=== PATIENT | male | born 1975 | race Caucasian/White ===

== ENCOUNTER 2022-02-14 22:44 | Emergency (ER) | payer OTHER, SELFPAY ==
[2022-02-14 22:46] VITALS: BP 125/75; PULSE 153; RESP 22; TEMP 36.5; O2SAT 93; BMI 45.6
--- NOTE | 2022-02-14 23:01 | ECG_ITS ---
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 Measurements Intervals [place] Rate: 149 P: NM: QRS: 49 QRSD: 154 T: 27 QT: 288 QTc: 454 Interpretive Statements ATRIAL FLUTTER WITH RAPID VENTRICULAR RESPONSE INTRAVENTRICULAR CONDUCTION DELAY [130+ ms QRS DURATION] No previous ECG available for comparison Electronically Signed On 02-15-2022 10:52:02 CDT by Danica Maldonado M.D. [id number]
--- NOTE | 2022-02-14 23:11 | XRR_ITS ---
PROCEDURE INFORMATION: Exam: XR Chest Exam date and time: 02/14/2022 11:33 PM Age: 46 years old Clinical indication: Pain; Chest pressure; Additional info: Cp TECHNIQUE: Imaging protocol: Radiologic exam of the chest. Views: 1 view. COMPARISON: No relevant prior studies available. FINDINGS: Lungs: Mild bibasilar opacities may represent superimposition of shadows, inflammation, or infection. Suspected mild increased pulmonary vascularity. No large consolidation. Pleural spaces: Layering small pleural effusions cannot be excluded. No large pleural effusion is identified. . No pneumothorax. Heart/Mediastinum: The cardiomediastinal silhouette appears mildly prominent on portable view. Bones/joints: There are degenerative changes of the spine and shoulder joints. XR/XR chest 1V portable [id number] IMPRESSION: 1. Nonspecific mild bibasilar opacities as outlined. 2. No pneumothorax.
--- NOTE | 2022-02-14 23:11 | ECG_ITS ---
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 Measurements Intervals [place] Rate: 77 P: 27 NH: 157 QRS: 39 QRSD: 105 T: 48 QT: 393 QTc: 447 Interpretive Statements SINUS RHYTHM WITH OCCASIONAL SUPRAVENTRICULAR PREMATURE COMPLEXES INCOMPLETE RIGHT BUNDLE BRANCH BLOCK Compared to ECG 02/14/2022 23:04:31 Incomplete right bundle-branch block now present Atrial flutter no longer present Intraventricular conduction delay no longer present Electronically Signed On 02-15-2022 10:51:24 CDT by Danica Maldonado M.D. [id number]
[2022-02-14] MEDS: dilTIAZem 5 mg/mL SDV 5 mL 15 MG IVP (23:20)
[2022-02-14] MEDS: sodium chloride 0.9% 1,000 ML 999 ML IV (23:20)
[2022-02-14 23:29] LABS: Basophils % 0.4 %; Eosinophils # 0.1 10^3/uL (0.0-0.8); Eosinophils % 0.9 %; Hemoglobin 15.8 g/dL (11.7-16.6); Lymphocytes # 1.8 10^3/uL (0.8-4.8); Lymphocytes % 23.4 %; Mean Corpuscular HGB Conc 33.6 g/dL (30.0-36.0); Mean Corpuscular Hemoglobin 31.3 pg (28.0-34.0); Mean Corpuscular Volume 93.1 fl (80-94); Mean Platelet Volume 11.3 fL (7.4-10.4); Monocytes # 0.7 10^3/uL (0.2-0.9); Monocytes % 9.1 %; Neutrophils # 4.89 10^3/uL (1.8-7.7); Neutrophils % 64.7 %; Nucleated Red Blood Cells % 0 %; Platelet Count 217 10^3/cmm (130-400); Red Blood Count 5.05 10^6/uL (4.1-5.3); Red Cell Distribution Width 13.1 % (12.1-15.1); White Blood Count 7.6 10^3/uL (4.0-10.0)
[2022-02-14 23:36] LABS: INR 1.08 (0.8-1.2)
[2022-02-14 23:37] LABS: Partial Thromboplastin Time 28.7 SECONDS (23.9-36.7)
[2022-02-14 23:39] LABS: D Dimer 0.48 ug/mIFEU (0-0.59)
[2022-02-14 23:42] LABS: Troponin(5th) Baseline 13 ng/L (0-15)
[2022-02-14 23:53] LABS: Alanine Aminotransferase 89 U/L (0-41); Albumin Level 4.5 g/dL (3.5-5.2); Alkaline Phosphatase 77 U/L (40-130); Anion Gap 20.2 (5-19); Aspartate Amino Transferase 56 U/L (0-40); Blood Urea Nitrogen 25 mg/dL (6-20); Calcium 10.7 mg/dL (8.5-10.5); Carbon Dioxide 21 mmol/L (22-29); Chloride 100 mmol/L (98-107); Globulin 3.6 g/dL (1.3-4.6); Glomerular Filtration Rate 58.9 mL/min (90-130); Glucose 127 mg/dL (65-115); Magnesium 1.9 mg/dL (1.7-2.3); NT Pro B Type Natriuretic Pept 32 pg/mL (0-125); Osmolality Calculated 290 mOsm/kg (285-295); Potassium 4.2 mmol/L (3.5-5.1); Sodium 137 mmol/L (136-145); Thyroid Stimulating Hormone 3.77 uIU/mL (0.27-4.20); Total Bilirubin 0.4 mg/dL (0.15-1.2); Total Protein 8.1 g/dL (6.6-8.7)
[2022-02-15 01:25] LABS: Troponin 5 2HR 13.59 ng/L (0-15)
[2022-02-15 01:33] LABS: Troponin 5 2HR Delta 0.59 ABS# (0-10)
--- NOTE | 2022-02-15 02:38 | ED_ITS ---
HPI - Chest Pain General: Chief Complaint: Chest Pain Stated Complaint: high hr and cp Time Seen by Provider: 02/14/22 23:11 Source: patient and family History of Present Illness: 46-year-old male presenting with palpitations and rapid heart rate. He has had the symptoms before, but they seem to resolve on their own. Tonight he did not. He denies chest pain. He states he is mildly short of breath. He notes that right now he feels fine . His rate is 150. MD complaint: other Pertinent past history: other Onset (ago): hour(s) Timing of current episode: other Prior episodes: Yes Onset: during rest Pain location: other Pain radiation: none Quality: tightness Relieving factors: nothing Exacerbating factors: nothing Associated symptoms: Reports diaphoresis, dyspnea and palpitations; Deny abdominal pain, fever(s), leg edema, nausea, syncope or vomiting Treatment prior to arrival: none Review of Systems Const: Reports: diaphoresis; Denies: fever(s) Eyes: Denies: change in vision Card: Reports: palpitations; Denies: syncope Resp: Reports: dyspnea GI: Denies: abdominal pain, nausea or vomiting Skin/Breast: Denies: rash Neuro: Denies: headache(s), weakness in extremities, dizziness or confusion PFS ED PFSH: Social History Smoking and tobacco status: former smoker Physical Exam Const: COMMON NORMALS: no acute distress GENERAL APPEARANCE: cooperative; not ill appearing and not frail appearing HENMT: COMMON NORMALS: normocephalic, atraumatic and Normal external nose present HEAD & SCALP: normocephalic and atraumatic FACE & SINUS: normal facial exam and face symmetric NOSE: Normal external nose present Eye: COMMON NORMALS: Equal, round and reactive pupils present and EOMs intact bilaterally PUPIL: Yes Equal, round and reactive pupils present Neck/C-Spine: GENERAL: Yes trachea midline Chest: CHEST: Yes Symmetrical chest wall rise Resp: COMMON NORMALS: normal respiratory effort, No retractions, No use of accessory muscles and clear to auscultation bilaterally AUSCULTATION: clear to auscultation bilaterally Cardio: COMMON NORMALS: regular rate RATE: regular rate and tachycardic RHYTHM: abnormal rhythm irregularly irregular GI: COMMON NORMALS: Normal to inspection, nondistended, normoactive bowel sounds present Extremity: COMMON NORMALS: no pedal edema Neuro: YASSINE COMA SCALE: document GCS findings Yassine coma scale eye opening: Spontaneous [place] coma scale verbal response: Orientated Yassine coma scale motor response: Obey commands Yassine coma scale total score: 15 SENSORY EXAM: Yes extremities (intact) Psych: COMMON NORMALS: speech normal SPEECH: Yes normal speech Skin: COMMON NORMALS: no rashes or lesions noted GENERAL SKIN EXAM: no rashes or lesions noted Course 2 Vital Signs: Vital signs: Vital Signs Temperature 97.7 F 02/14/22 22:46 Pulse Rate 153 H 02/14/22 22:46 Respiratory Rate 22 H 02/14/22 22:46 Blood Pressure 125/75 02/14/22 22:46 Pulse Oximetry 93 02/14/22 22:46 Oxygen Delivery Me thod 02/14/22 22:46 MDM - Chest Pain Medical Decision Making Patient presented with atrial fibrillation with RVR. This resolved after 1 dose of diltiazem IV. EKG following shows normal sinus rhythm. CBC is normal. Creatinine is 1.3. Troponin remained normal at 2 hours. D-dimer is negative. Chest x-ray by my read is clear. TSH is normal. Patient was offered admission, but declined. He wishes to go home. He will be placed on metoprolol for rate control, aspirin for reduction of stroke risk, and asked to follow-up with cardiology. Case management will make the patient appointment. He has a PCP and will follow up with her this coming week Lab Data : 02/14/22 23:10 02/14/22 23:10 Radiology Impressions Chest X-Ray 02/14/22 23:11 IMPRESSION: 1. Nonspecific mild bibasilar opacities as outlined. 2. No pneumothorax. Laboratory Results WBC 7.6 10^3/uL (4.0-10.0) 02/14/22 23:10 RBC 5.05 10^6/uL (4.1-5.3) 02/14/22 23:10 Hgb 15.8 g/dL (11.7-16.6) 02/14/22 23:10 Hct 47.0 % (42.0-52.0) 02/14/22 23:10 MCV 93.1 fl (80-94) 02/14/22 23:10 MCH 31.3 pg (28.0-34.0) 02/14/22 23:10 MCHC 33.6 g/dL (30.0-36.0) 02/14/22 23:10 RDW 13.1 % (12.1-15.1) 02/14/22 23:10 Plt Count 217 10^3/cmm (130-400) 02/14/22 23:10 MPV 11.3 fL (7.4-10.4) H 02/14/22 23:10 Neut % (Auto) 64.7 % 02/14/22 23:10 Lymph % (Auto) 23.4 % 02/14/22 23:10 Heard % (Auto) 9.1 % 02/14/22 23:10 Eos % (Auto) 0.9 % 02/14/22 23:10 Baso % (Auto) 0.4 % 02/14/22 23:10 Neut # (Auto) 4.89 10^3/uL (1.8-7.7) 02/14/22 23:10 Lymph # (Auto) 1.8 10^3/uL (0.8-4.8) 02/14/22 23:10 Heard # (Auto) 0.7 10^3/uL (0.2-0.9) 02/14/22 23:10 Eos # (Auto) 0.1 10^3/uL (0.0-0.8) 02/14/22 23:10 Baso # (Auto) 0.0 10^3/uL (0.0-0.1) 02/14/22 23:10 Nucleated RBC % (auto) 0 % 02/14/22 23:10 Nucleated RBCs # 0.0 /100WBC 02/14/22 23:10 PT 14.30 SECONDS (12.1-14.9) 02/14/22 23:10 INR 1.08 (0.8-1.2) 02/14/22 23:10 APTT 28.7 SECONDS (23.9-36.7) 02/14/22 23:10 D-Dimer 0.48 ug/mIFEU (0-0.59) 02/14/22 23:10 Sodium 137 mmol/L (136-145) 02/14/22 23:10 Potassium 4.2 mmol/L (3.5-5.1) 02/14/22 23:10 Chloride 100 mmol/L (98-107) 02/14/22 23:10 Carbon Dioxide 21 mmol/L (22-29) L 02/14/22 23:10 Anion Gap 20.2 (5-19) H 02/14/22 23:10 BUN 25 mg/dL (6-20) H 02/14/22 23:10 Creatinine 1.3 mg/dL (0.7-1.2) H 02/14/22 23:10 GFR Calculation 58.9 mL/min (90-130) L 02/14/22 23:10 Glucose 127 mg/dL (65-115) H 02/14/22 23:10 Calculated Osmolality 290 mOsm/kg (285-295) 02/14/22 23:10 Calcium 10.7 mg/dL (8.5-10.5) H 02/14/22 23:10 Magnesium 1.9 mg/dL (1.7-2.3) 02/14/22 23:10 Total Bilirubin 0.4 mg/dL (0.15-1.2) 02/14/22 23:10 AST 56 U/L (0-40) H 02/14/22 23:10 ALT 89 U/L (0-41) H 02/14/22 23:10 Alkaline Phosphatase 77 U/L (40-130) 02/14/22 23:10 Troponin T Baseline 13 ng/L (0-15) 02/14/22 23:10 Troponin T 120 Minute 13.59 ng/L (0-15) 02/15/22 00:54 Delta Troponin T 0.59 ABS# (0-10) 02/15/22 00:54 NT-Pro-B Natriuret Pep 32 pg/mL (0-125) 02/14/22 23:10 Total Protein 8.1 g/dL (6.6-8.7) 02/14/22 23:10 Albumin 4.5 g/dL (3.5-5.2) 02/14/22 23:10 Globulin 3.6 g/dL (1.3-4.6) 02/14/22 23:10 TSH 3.77 uIU/mL (0.27-4.20) 02/14/22 23:10 Discharge Plan Discharge Patient Disposition: Home Clinical Impression: Atrial fibrillation with tachycardic ventricular rate Prescriptions: New metoprolol tartrate 25 mg tablet 25 mg PO BID Qty: 30 0RF aspirin 325 mg capsule 325 mg PO DAILY Qty: 30 0RF No Action escitalopram oxalate [Lexapro] 10 mg tablet 10 mg PO DAILY ibuprofen [IBU] 800 mg tablet 800 mg PO Q8H alprazolam [Xanax] 0.5 mg tablet 0.5 mg PO DAILY azithromycin 250 mg tablet See Rx Instructions PO .COMPLEX Qty: 6 0RF Rx Instructions: take 500 mg today (day 1), then 250 mg for 4 days (days 2-5) PO methylprednisolone [Medrol (Te)] 4 mg tablets,dose pack See Rx Instructions PO PER PKG DIR Qty: 21 0RF Rx Instructions: PO PER PKG DIR albuterol sulfate [Ventolin HFA] 90 mcg/actuation HFA aerosol inhaler 2 puff inhalation Q6H PRN (Reason: shortness of breath or wheezing) Qty: 8.5 0RF Discharge Orders: Discharge ED (Routine); Ordered 02/15/22 Ordered By: Devon Bosch Referrals: Dawn Barrios APN [Primary Care Provider] - 1-3 days Patient Instructions: Opioid Safety, Pain Management Activity Restrictions/Additional Instructions: Medication as directed. See your doctor next week. Case management has been asked to make cardiology appointment for you. They will contact you at the be ginning of the week. Return to the ER for any episodes of chest pain, palpitations or fast heart ra te, dizziness, syncope or passing out, any other concerning symptoms. Coding Level of Care Code ED Pump Installation And Servicer for Tess Sanchez
== END 2022-02-15 01:54 | disposition home or self-care (01) ==
PROVIDERS: Emergency Provider Emergency Medicine; PCP Nurse Practitioner Family
DX: I48.20 Chronic atrial fibrillation, unspecified (principal); Z87.891 Personal history of nicotine dependence
CPT/HCPCS: 71045; 80053; 83735; 83880; 84443; 84484; 85025; 85378; 85610; 85730; 93005; 96374; 99285; J3490; J7030

== ENCOUNTER 2022-02-25 15:30 | Emergency (ER) | payer OTHER, SELFPAY ==
[2022-02-25 15:39] VITALS: BP 157/65; PULSE 72; RESP 16; TEMP 36.4; O2SAT 95
--- NOTE | 2022-02-25 16:02 | USCV_ITS ---
LevyGrupo Age: 46 Gender: M : 1975 Exam Date: 02/25/2022 16:24 Ordering Phys: Osbaldo Franco Technologist: ROBINSON Exam Location: [facility] [place] Indication: RUE PAIN AND TENDER LUMPS HISTORY: Upper extremity swelling. Upper extremity pain. PROCEDURES: Venous duplex imaging was performed in only the right upper extremity. The following venous structures were evaluated: internal jugular vein, subclavian vein, axillary vein, and brachial veins. In addition, the basilic vein, cephalic vein, radial vein, and ulnar vein. Serial compression, augmentation maneuvers, and spectral Doppler flow evaluation were performed. FINDINGS: The veins of the right upper extremity are readily compressible with normal venous flow dynamics including spontaneous flow, respiratory phasic variation and augmentation. No evidence of deep vein thrombosis or superficial thrombophlebitis in the right upper extremity. In AOI of lumps no obvious abnormalites seen CONCLUSIONS No evidence of thrombus of the right upper extremity veins. Tyron Ley MD (Electronically Signed) Final Date: 25 February 2022 16:45 S
--- NOTE | 2022-02-25 16:03 | ED_ITS ---
HPI - Animal Bite General: Chief Complaint: Animal Bite Stated Complaint: spiderbite Time Seen by Provider: 02/25/22 15:53 History of Present Illness: Patient is a 46-year-old male comes to the ED with red tender nodules on right forearm. Patient had a brown recluse spider bite of his right wrist little over 2 weeks ago. He was put on a course of Bactrim and then started on a course of cephalexin after that. Over the past couple days he started developing these sore red tender nodules on his forearm. Denies any other injury or trauma to cause symptoms. Denies any history of blood clots. He is not on a blood thinner currently. Denies any chest pain or shortness of breath. Associated symptoms: Deny chills, fever(s) or headache(s) Review of Systems Const: Denies: fever(s), chills or fatigue Eyes: Denies: change in vision or eye discomfort ENMT: Denies: throat pain, odynophagia, nasal discharge or nasal congestion Card: Denies: chest pain, palpitations, edema, swelling of feet/ankles, dyspnea on exertion or orthopnea Resp: Denies: dyspnea, productive cough or non-productive cough GI: Denies: abdominal pain, nausea, vomiting, diarrhea, constipation or hematochezia : Denies: flank pain, difficulty urinating, dysuria or hematuria Musc: Reports: other (Sore tender nodules on right forearm); Denies: neck pain, back pain or extremity swelling Skin/Breast: Denies: rash or new lesions Neuro: Denies: headache(s), numbness in extremities or weakness in extremities COUNT INCLUDES THE [facility] ED PFSH: Medical History No pertinent family history Surgical History No pertinent past surgical history Social History Smoking and tobacco status: former smoker Physical Exam Const: COMMON NORMALS: no acute distress, patient oriented x3 and alert GENERAL APPEARANCE: cooperative and comfortable HENMT: COMMON NORMALS: normocephalic HEAD & SCALP: normocephalic MOUTH: Normal oral and palatal mucosa present THROAT: posterior oropharynx normal and uvula midline Neck/C-Spine: COMMON NORMALS: supple GENERAL: Yes normal visual inspection Resp: COMMON NORMALS: normal respiratory effort, No retractions, No use of accessory muscles and clear to auscultation bilaterally AUSCULTATION: clear to auscultation bilaterally Cardio: COMMON NORMALS: regular rate, regular rhythm, S1 normal heart sound present, S2 normal heart sound present, No gallops present (Cardio), No clicks present (Cardio), No murmurs present (Cardio) and Peripheral pulses 2+ throughout RATE: regular rate RHYTHM: regular rhythm HEART SOUNDS: S1 normal heart sound present and S2 normal heart sound present PERIPHERAL PULSES: Peripheral pulses 2+ throughout GI: COMMON NORMALS: Normal to inspection, nondistended, normoactive bowel sounds present, Soft to palpation, non-tender and no masses PALPATION: Yes Soft to palpation : COMMON NORMALS: Yes no CVA tenderness BLADDER/KIDNEY EXAM: Yes no CVA tenderness Back/Pelvis: COMMON NORMALS: no CVA tenderness Extremity: COMMON NORMALS: full ROM and capillary refill normal NARRATIVE EXTREMITY EXAM: Right arm?wrist- healing spider bite wound present that is approximately 2 cm in diameter. No purulent drainage noted. No signs of cellulitis seen. Right proximal forearm?3 small, warm, erythemic tender firm nodules. They are nonfluctuant and indurated. Findings suggestive of possible cellulitis. Neuro: COMMON NORMALS: patient oriented x3 SENSORIUM/ORIENTATION: Yes alert GAIT: Yes Normal gait present Skin: GENERAL SKIN EXAM: dry skin Course Vital Signs: Vital signs: Vital Signs Temperature 97.5 F L 02/25/22 15:39 Pulse Rate 72 02/25/22 15:39 Respiratory Rate 16 02/25/22 15:39 Blood Pressure 157/65 02/25/22 15:39 Pulse Oximetry 95 02/25/22 15:39 Oxygen Delivery Me thod 02/25/22 15:39 MDM - Animal Bite Medical Decision Making Patient is a 46-year-old male comes to the ED with some red tender nodules on right forearm. Patient had a brown recluse spider bite little over 2 weeks ago and he has been on a course of antibiotics to treat that. Vitals are stable patient appears nontoxic in no acute distress or pain. Right proximal forearm?3 small, warm, erythemic tender firm nodules. They are nonfluctuant and indurated. Findings suggestive of possible cellulitis. Patient's spider bite wound on right wrist is healing well and does not appear infected. Ultrasound venous duplex of right upper extremity shows no DVTs or blood clots seen. Patient was diagnosed with cellulitis and given a shot of Rocephin here in the ED and sent home with a prescription for doxycycline. Told to follow-up with his PCP within the next week for reevaluation. Return to ED precautions given. Patient understood and agreed with plan. Discharge Plan Discharge Patient Disposition: Home Clinical Impression: Cellulitis Qualifiers: Site of cellulitis: extremity Site of cellulitis of extremity: upper extremity Laterality: right Qualified Code(s): L03.113 - Cellulitis of right upper limb Condition: Stable Prescriptions: New methylprednisolone 4 mg tablets,dose pack See Rx Instructions .ROUTE .COMPLEX Qty: 21 0RF Rx Instructions: orally per package directions doxycycline hyclate 100 mg capsule 100 mg PO BID 10 Days Qty: 20 0RF No Action escitalopram oxalate [Lexapro] 10 mg tablet 10 mg PO DAILY ibuprofen [IBU] 800 mg tablet 800 mg PO Q8H alprazolam [Xanax] 0.5 mg tablet 0.5 mg PO DAILY azithromycin 250 mg tablet See Rx Instructions PO .COMPLEX Qty: 6 0RF Rx Instructions: take 500 mg today (day 1), then 250 mg for 4 days (days 2-5) PO methylprednisolone [Medrol (Te)] 4 mg tablets,dose pack See Rx Instructions PO PER PKG DIR Qty: 21 0RF Rx Instructions: PO PER PKG DIR albuterol sulfate [Ventolin HFA] 90 mcg/actuation HFA aerosol inhaler 2 puff inhalation Q6H PRN (Reason: shortness of breath or wheezing) Qty: 8.5 0RF metoprolol tartrate 25 mg tablet 25 mg PO BID Qty: 30 0RF aspirin 325 mg capsule 325 mg PO DAILY Qty: 30 0RF Discharge Orders: Discharge ED (Routine); Ordered 02/25/22 Ordered By: Osbaldo Franco Referrals: Dawn Barrios APN [Primary Care Provider] - Discharge Diet: Regular Discharge Activity: Increase activity as tolerated Activity Restrictions/Additional Instructions: Follow-up with medical provider as directed in the next 5 to 7 days for reevaluation. Take medications as prescribed. Return to the ER or your medical provider if condition worsens. Please read and understand discharge instructions. Thank you for choosing [facility] for your healthcare needs today. Please realize this is an emergency room and that we are providing you with a medical screening exam and this may not be complete and all inclusive of all the testing and or work up that you may need to determine your ailment or severity of your illness. It is very important that you follow up as instructed or that you return to the Emergency Department should you have concerns or if your condition changes or worsens in any way. Coding Level of Care Code ED Adult Manager for Tess Fwd Exam Comprehensive
[2022-02-25] MEDS: ketorolac 60 mg/2 mL INJ IM (16:09)
[2022-02-25] MEDS: cefTRIAXone 1,000 MG in lidocaine 1% 2.1 ML 1 MG IM (17:06)
== END 2022-02-25 17:09 | disposition home or self-care (01) ==
PROVIDERS: Emergency Provider Physician Assistant; PCP Nurse Practitioner Family
DX: L03.113 Cellulitis of right upper limb (principal); Z79.82 Long term (current) use of aspirin; Z87.891 Personal history of nicotine dependence
CPT/HCPCS: 93971; 96372; 99285; J0696; J1885

== ENCOUNTER 2022-03-26 01:59 | Inpatient (IN) | payer OTHER, SELFPAY ==
--- NOTE | 2022-03-26 02:04 | ECG_ITS ---
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 Measurements Intervals [place] Rate: 133 P: 0 ME: 0 QRS: 41 QRSD: 103 T: 45 QT: 299 QTc: 445 Interpretive Statements ATRIAL FIBRILLATION WITH RAPID VENTRICULAR RESPONSE ABNORMAL RHYTHM ECG Compared to ECG 02/14/2022 23:55:59 Sinus rhythm no longer present Incomplete right bundle-branch block no longer present Electronically Signed On 03-26-2022 18:07:36 SKINNER PELTS by Beck Mcdaniel M.D. [id number]
[2022-03-26 02:06] VITALS: BMI 46.1
--- NOTE | 2022-03-26 02:14 | XRR_ITS ---
PROCEDURE INFORMATION: Exam: XR Chest Exam date and time: 03/26/2022 2:18 AM Age: 46 years old Clinical indication: Shortness of breath; Patient HX: C/O tachycardia with SOB. Recently diagnosed with afib. ; Additional info: Cp TECHNIQUE: Imaging protocol: Radiologic exam of the chest. Views: 1 view. COMPARISON: CR (CHEST, ) 02/14/2022 11:33 PM FINDINGS: Lungs: No CHF/pulmonary edema. Poor inspiration somewhat limits evaluation, especially of the lung bases. Suspect mild lateral left lower lung opacities. These findings could represent atelectasis or pneumonia. Please correlate clinically. Visible lungs otherwise appear essentially clear. Pleural spaces: No visible pneumothorax. No definite pleural fluid. Heart/Mediastinum: Heart size appears upper range of normal. Bones/joints: No significant acute finding. XR/XR chest 1V portable [id number] IMPRESSION: 1. Suspect mild lateral left lower lung opacities, see above discussion. 2. Other findings discussed above.
--- NOTE | 2022-03-26 02:24 | W.ED.ARRPALP ---
HPI - Arrhythmia/Palpitations General: Chief Complaint: Arrhythmia/Palpitations Stated Complaint: fast hr Time Seen by Provider: 03/26/22 02:04 Source: patient Mode of arrival: ambulatory Limitations: no limitations History of Present Illness: 46-year-old male who states that he has been having palpitations along with chest pain and shortness of breath since midnight he states he was seen here 2 weeks ago for atrial flutter placed on Metroprolol and states heart rates been good and states that tonight at midnight he did check his heart rate into the 150s in the 140s here in A. fib with RVR denies any worsening proving factors denies any fevers. Associated symptoms: Deny nausea or vomiting Review of Systems Const: Denies: fever(s), chills, body aches or change in appetite Eyes: Denies: blurry vision or eye discomfort ENMT: Denies: throat pain or dental pain Card: Reports: chest pain, palpitations and irregular heart rhythm Resp: Reports: dyspnea GI: Denies: abdominal pain, nausea, vomiting or diarrhea : Denies: dysuria Musc: Denies: neck pain or back pain Skin/Breast: Denies: rash Neuro: Denies: headache(s) Psych: Denies: depression Lyle/Lymph: Denies: easy bruising All/Imm: Denies: urticaria PFSH ED PFSH: Medical History No pertinent family history Surgical History No pertinent past surgical history Social History Smoking and tobacco status: former smoker Physical Exam Const: COMMON NORMALS: no acute distress, patient oriented x3 and healthy appearing HENMT: COMMON NORMALS: normocephalic and atraumatic HEAD & SCALP: normocephalic and atraumatic Eye: COMMON NORMALS: Equal, round and reactive pupils present and EOMs intact bilaterally PUPIL: Yes Equal, round and reactive pupils present Neck/C-Spine: COMMON NORMALS: full ROM and supple Chest: COMMONS NORMALS: normal inspection of the chest and normal palpation of entire chest wall Resp: COMMON NORMALS: normal respiratory effort, No retractions, No use of accessory muscles and clear to auscultation bilaterally AUSCULTATION: clear to auscultation bilaterally Cardio: COMMON NORMALS: No murmurs present (Cardio) RATE: tachycardic RHYTHM: abnormal rhythm irregularly irregular GI: COMMON NORMALS: Normal to inspection, nondistended, normoactive bowel sounds present, Soft to palpation, non-tender and no masses PALPATION: Yes Soft to palpation Extremity: COMMON NORMALS: normal to inspection and full ROM Neuro: COMMON NORMALS: patient oriented x3, moves all extremities and no focal motor deficits Psych: COMMON NORMALS: mental status grossly normal, Normal thought process present and cooperative THOUGHT PROCESS: Normal thought process present Skin: COMMON NORMALS: no rashes or lesions noted and no wounds GENERAL SKIN EXAM: no rashes or lesions noted MDM - Arrhythmia/Palpitations Medical Decision Making Patient presents here new onset A. fib with A. fib with RVR patient was given Cardizem bolus heart rate improved to the 110s but had to be started on a Cardizem drip due to continued tachycardia he has no signs of PE as D-dimer is negative spoke to the hospitalist and will admit at this time. Lab Data 03/26/22 02:12 03/26/22 02:12 Laboratory Results WBC 5.6 10^3/uL (4.0-10.0) 03/26/22 02:12 RBC 4.65 10^6/uL (4.1-5.3) 03/26/22 02:12 Hgb 14.6 g/dL (11.7-16.6) 03/26/22 02:12 Hct 42.4 % (42.0-52.0) 03/26/22 02:12 MCV 91.2 fl (80-94) 03/26/22 02:12 MCH 31.4 pg (28.0-34.0) 03/26/22 02:12 MCHC 34.4 g/dL (30.0-36.0) 03/26/22 02:12 RDW 12.9 % (12.1-15.1) 03/26/22 02:12 Plt Count 213 10^3/cmm (130-400) 03/26/22 02:12 MPV 10.8 fL (7.4-10.4) H 03/26/22 02:12 Neut % (Auto) 48.9 % 03/26/22 02:12 Lymph % (Auto) 40.6 % 03/26/22 02:12 Hartley % (Auto) 6.8 % 03/26/22 02:12 Eos % (Auto) 2.5 % 03/26/22 02:12 Baso % (Auto) 0.5 % 03/26/22 02:12 Neut # (Auto) 2.71 10^3/uL (1.8-7.7) 03/26/22 02:12 Lymph # (Auto) 2.3 10^3/uL (0.8-4.8) 03/26/22 02:12 Hartley # (Auto) 0.4 10^3/uL (0.2-0.9) 03/26/22 02:12 Eos # (Auto) 0.1 10^3/uL (0.0-0.8) 03/26/22 02:12 Baso # (Auto) 0.0 10^3/uL (0.0-0.1) 03/26/22 02:12 Nucleated RBC % (auto) 0 % 03/26/22 02:12 Nucleated RBCs # 0.0 /100WBC 03/26/22 02:12 D-Dimer <= 0.27 ug/mIFEU (0-0.59) 03/26/22 02:12 Sodium 140 mmol/L (136-145) 03/26/22 02:12 Potassium 3.8 mmol/L (3.5-5.1) 03/26/22 02:12 Chloride 101 mmol/L (98-107) 03/26/22 02:12 Carbon Dioxide 26 mmol/L (22-29) 03/26/22 02:12 Anion Gap 16.8 (5-19) 03/26/22 02:12 BUN 15 mg/dL (6-20) 03/26/22 02:12 Creatinine 1.0 mg/dL (0.7-1.2) 03/26/22 02:12 GFR Calculation 79.8 mL/min (90-130) L 03/26/22 02:12 Glucose 97 mg/dL (65-115) 03/26/22 02:12 Calculated Osmolality 291 mOsm/kg (285-295) 03/26/22 02:12 Calcium 9.8 mg/dL (8.5-10.5) 03/26/22 02:12 Total Bilirubin 0.3 mg/dL (0.15-1.2) 03/26/22 02:12 AST 32 U/L (0-40) 03/26/22 02:12 ALT 43 U/L (0-41) H 03/26/22 02:12 Alkaline Phosphatase 68 U/L (40-130) 03/26/22 02:12 Troponin T Baseline 12 ng/L (0-15) 03/26/22 02:12 Total Protein 7.4 g/dL (6.6-8.7) 03/26/22 02:12 Albumin 4.4 g/dL (3.5-5.2) 03/26/22 02:12 Globulin 3.0 g/dL (1.3-4.6) 03/26/22 02:12 EKG Data EKG 1: I personally reviewed and interpreted this EKG as follows: EKG interpretation date: 03/26/22 EKG interpretation time: 02:04 Interpretation: afiv hr [address] or t wave abnormalities qrs 103 qtc 377 Critical Care Time Critical Care Time: Critical Care Time: Yes Total Critical Care Time: 40 Attestation: The high probability of a clinically significant, sudden or life threatening deterioration of the patient's cv system(s) required my full and direct attention, intervention and personal management. The critical care time is as shown. This time is in addition to time spent performing any reported procedures but includes the following: [x] Data and vital sign review and interpretation [x] Patient assessment, examination and intervention [x] Documentation [x] Medication orders and management Discharge Plan Discharge Patient Disposition: Admitted As Inpatient Clinical Impression: Atrial fibrillation with rapid ventricular response Condition: Stable Prescriptions: No Action escitalopram oxalate [Lexapro] 10 mg tablet 10 mg PO DAILY ibuprofen [IBU] 800 mg tablet 800 mg PO Q8H alprazolam [Xanax] 0.5 mg tablet 0.5 mg PO DAILY azithromycin 250 mg tablet See Rx Instructions PO .COMPLEX Qty: 6 0RF Rx Instructions: take 500 mg today (day 1), then 250 mg for 4 days (days 2-5) PO methylprednisolone [Medrol (Te)] 4 mg tablets,dose pack See Rx Instructions PO PER PKG DIR Qty: 21 0RF Rx Instructions: PO PER PKG DIR albuterol sulfate [Ventolin HFA] 90 mcg/actuation HFA aerosol inhaler 2 puff inhalation Q6H PRN (Reason: shortness of breath or wheezing) Qty: 8.5 0RF metoprolol tartrate 25 mg tablet 25 mg PO BID Qty: 30 0RF aspirin 325 mg capsule 325 mg PO DAILY Qty: 30 0RF methylprednisolone 4 mg tablets,dose pack See Rx Instructions .ROUTE .COMPLEX Qty: 21 0RF Rx Instructions: orally per package directions Referrals: Dawn Barrios APN [Primary Care Provider] - Coding Level of Care Code ED [employer] Mechanic for Chg Fwd Exam Comprehensive
[2022-03-26] MEDS: sodium chloride 0.9% 1,000 ML 999 ML IV ×2 (02:32→04:00)
[2022-03-26] MEDS: dilTIAZem 5 mg/mL SDV 5 mL 10 MG IVP (02:32)
[2022-03-26 02:33] LABS: Basophils % 0.5 %; Eosinophils # 0.1 10^3/uL (0.0-0.8); Eosinophils % 2.5 %; Hematocrit 42.4 % (42.0-52.0); Hemoglobin 14.6 g/dL (11.7-16.6); Lymphocytes # 2.3 10^3/uL (0.8-4.8); Lymphocytes % 40.6 %; Mean Corpuscular HGB Conc 34.4 g/dL (30.0-36.0); Mean Corpuscular Hemoglobin 31.4 pg (28.0-34.0); Mean Corpuscular Volume 91.2 fl (80-94); Mean Platelet Volume 10.8 fL (7.4-10.4); Monocytes # 0.4 10^3/uL (0.2-0.9); Monocytes % 6.8 %; Neutrophils # 2.71 10^3/uL (1.8-7.7); Neutrophils % 48.9 %; Nucleated Red Blood Cells % 0 %; Platelet Count 213 10^3/cmm (130-400); Red Blood Count 4.65 10^6/uL (4.1-5.3); Red Cell Distribution Width 12.9 % (12.1-15.1); White Blood Count 5.6 10^3/uL (4.0-10.0)
[2022-03-26 02:51] LABS: Alanine Aminotransferase 43 U/L (0-41); Albumin Level 4.4 g/dL (3.5-5.2); Alkaline Phosphatase 68 U/L (40-130); Anion Gap 16.8 (5-19); Aspartate Amino Transferase 32 U/L (0-40); Blood Urea Nitrogen 15 mg/dL (6-20); Calcium 9.8 mg/dL (8.5-10.5); Carbon Dioxide 26 mmol/L (22-29); Chloride 101 mmol/L (98-107); D Dimer <= 0.27 ug/mIFEU (0-0.59); Glomerular Filtration Rate 79.8 mL/min (90-130); Glucose 97 mg/dL (65-115); Osmolality Calculated 291 mOsm/kg (285-295); Potassium 3.8 mmol/L (3.5-5.1); Sodium 140 mmol/L (136-145); Total Bilirubin 0.3 mg/dL (0.15-1.2); Total Protein 7.4 g/dL (6.6-8.7); Troponin(5th) Baseline 12 ng/L (0-15)
[2022-03-26] MEDS: dilTIAZem 100 MG in sodium chloride 0.9% (add-van) 100 ML 10 MG IV (02:58)
--- NOTE | 2022-03-26 04:14 | ECG_ITS ---
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 Measurements Intervals [place] Rate: 98 P: 0 DE: 0 QRS: 54 QRSD: 97 T: 63 QT: 331 QTc: 423 Interpretive Statements ATRIAL FIBRILLATION WITH ABERRANT CONDUCTION OR VENTRICULAR PREMATURE COMPLEXES ABNORMAL RHYTHM ECG Compared to ECG 03/26/2022 02:04:50 Ventricular premature complex(es) now present Aberrant conduction of supraventricular beat(s) now present Electronically Signed On 03-26-2022 18:24:19 LEAD ATHLETE by Beck Mcdaniel M.D. [id number]
--- NOTE | 2022-03-26 04:44 | P.HP_ITS ---
Providers/Chief Complaint Primary Care Provider: Dawn Barrios APN Chief Complaint: fast hr History of Present Illness Grupo Levy is a 46 year old male who does not have significant past medical history other than hypertension presented with chief complaint of chest discomfort. He is describing chest discomfort as butterfly feeling, he is not describing it as chest pain. No recent shortness of breath, fever, nausea, vomiting. He suffered from a spider bite and lymphangitis 6 weeks ago has been on antibiotics. No previous diagnosis of A. fib CHF or OK. Patient snores a lot, has been gaining weight, drinks more than 2 beers a day, he does vap. He is endorsing to morning headaches, lack of energy, feeling tired. No previous history of sleep apnea In the ER he has been diagnosed with new onset A. fib RVR multiple doses of Cardizem bolus did not help to control his heart rate hence he was put on Cardizem drip Review of Systems Const: Denies: fever(s) Eyes: Denies: change in vision ENMT: Denies: throat pain Card: Denies: chest pain Resp: Denies: dyspnea GI: Denies: abdominal pain : Denies: flank pain Musc: Denies: neck pain Skin/Breast: Reports: rash Neuro: Denies: headache(s) Psych: Denies: anxiety Endo: Denies: polyuria Lyle/Lymph: Denies: easy bruising All/Imm: Denies: urticaria Medications/Allergies Home Medications Medication Instructions Recorded Confirmed Last Taken Type albuterol sulfate 90 mcg/actuation 2 puff inhalation Q6H PRN 12/05/20 12/05/20 Unknown Rx aerosol inhaler (Ventolin HFA) shortness of breath or wheezing #8.5 grams alprazolam 0.5 mg tablet (Xanax) 0.5 mg PO DAILY 12/05/20 12/05/20 Unknown History azithromycin 250 mg tablet See Rx Instructions PO .COMPLEX #6 12/05/20 12/05/20 Unknown Rx tabs escitalopram oxalate 10 mg tablet 10 mg PO DAILY 12/05/20 12/05/20 Unknown History (Lexapro) ibuprofen 800 mg tablet (IBU) 800 mg PO Q8H 12/05/20 12/05/20 Unknown History methylprednisolone 4 mg tablets in See Rx Instructions PO PER PKG DIR 12/05/20 12/05/20 Unknown Rx a dose pack (Medrol (Te)) #21 ea aspirin 325 mg capsule 325 mg PO DAILY #30 caps 02/15/22 Unknown Rx metoprolol tartrate 25 mg tablet 25 mg PO BID #30 tabs 02/15/22 Unknown Rx methylprednisolone 4 mg tablets in See Rx Instructions PO .COMPLEX 02/25/22 Unknown Rx a dose pack #21 ea Allergies Allergy/AdvReac Type Severity Reaction Status Date / Time No Known Allergies Allergy Verified 02/25/22 15:44 PFSH Acute PFSH: Medical History No pertinent family history Surgical History No pertinent past surgical history Social History (Updated 03/26/22 @ 05:22 by iMng Broussard MD) Smoking and tobacco status: current every day smoker e-cigarettes Alcohol intake: current Alcohol intake frequency: 3 or more drinks per day Alc ohol type: beer Vitals/I&O/Wt Weight last 48 hrs Weight 158.757 kg Physical Exam Narrative: Morbidly obese male Appears more than stated age Clinically does not look fluid overloaded Currently hemodynamic stable Variable S1-S2 A. fib RVR Hemodynamically stable Nonfocal neuro exam Right wrist spider bite seems to be healing Right arm lymphangitis improving EOMI, PERRLA Abdomen distended nontender, soft Appropriate mood and affect Data 03/26/22 02:12 03/26/22 02:12 A&P Assessment and plan (1) HTN (hypertension): (2) Atrial fibrillation with rapid ventricular response: Plan New onset A. fib RVR Currently on Cardizem drip Check magnesium level Check echo Concern is related to undiagnosed sleep apnea patient is showing all the signs of untreated sleep apnea We will do overnight pulse ox study He will need outpatient sleep study He carries history of hypertension, no history of diabetes, OK or vascular disease, [id number] is 1 for now I will put him on aspirin Check A1c level, lipid profile Check alcohol and drug screen If his rhythm does not convert to sinus, he might need cardiology consult and antiarrhythmic medications For now we will continue Cardizem drip along with p.o. Cardizem regimen Patient vapes, more than 2 beers every day Attestations Medical Necessity Statement*: More than 2 midnights anticipated Time Spent in Patient Care: 40 Coding Level of Care Code Acute Adjunct Psychology Faculty Member for Chg Fwd Diagnoses HTN (hypertension) I10 Atrial fibrillation with rapid ventricular response I48.91
[2022-03-26 05:35] VITALS: BP 104/75; PULSE 111; RESP 18; TEMP 36.6; O2SAT 94
--- NOTE | 2022-03-26 05:36 | USCV_ITS ---
Grupo Levy Age: 46 Gender: M : 1975 Exam Date: 03/26/2022 10:25 Ordering Phys: Ming Broussard MD Technologist: ROBINSON Exam Location: [facility] [place] Indication: A FIB BP: 132 / 75 HR: 62 Rhythm: Sinus Technical Quality: Poor MEASUREMENTS (Male / Female) Normal Values 2D ECHO LVOT Diameter 2.0 cm LV Ejection Fraction MOD 2C 63.5 % LV Ejection Fraction 2C AL 63.6 % LA Diameter 4.1 cm LA Width 3.6 cm LA Height 4.9 cm RA Width 3.4 cm RA Height 4.3 cm Aorta at Sinotubular Diameter 2.4 cm IVC Diameter 2.2 cm M-MODE Aortic Annulus Diameter 3.3 cm LA Ao Ratio MM 1.2 MV E Point Septal Separation 1.0 cm DOPPLER AV Peak Velocity 186.7 cm/s LVOT Peak Velocity 129.0 cm/s AV Area Cont Eq vti 2.4 cm squared AV Area Cont Eq pk 2.2 cm squared MV Peak Velocity 109.0 cm/s MV Area PHT 3.9 cm squared Mitral E to A Ratio 1.2 MV E' Velocity 96.0 cm/s TR Peak Velocity 149.8 cm/s TR Peak Gradient 9.0 mmHg TR Mean Velocity 116.9 cm/s TR Mean Gradient 6.0 mmHg TR Velocity Time Integral 36.0 cm TV Peak E Velocity 51.0 cm/s Right Atrial Pressure 3.0 mmHg Pulmonary Artery Systolic Pressu 12.0 mmHg PV Peak Velocity 92.0 cm/s RV Acceleration Time 0.1 s RV Ejection Time 0.4 s RV AcT/ET 0.4 FINDINGS Left Ventricle Normal left ventricular size, systolic function and wall thickness, with no regional wall motion abnormalities. Normal left ventricular wall thickness. Normal diastolic filling pattern. Echo contrast was used to adequately visualize the ventricle and the endocardium. Left ventricular ejection fraction is estimated at 60 %. Right Ventricle The right ventricle is normal in size and function. Normal right ventricular systolic pressure. Right Atrium The right atrium is normal in size. Left Atrium The left atrium is normal in size. Mitral Valve Structurally normal mitral valve without significant stenosis or prolapse. There is no mitral regurgitation. Aortic Valve Structurally normal aortic valve without significant sclerosis or stenosis. There is no aortic regurgitation. Tricuspid Valve Structurally normal tricuspid valve without significant stenosis or regurgitation. Pulmonary artery systolic pressure is normal. Pulmonic Valve Pulmonic valve not well visualized. Pericardium Normal pericardium without effusion. Aorta Normal ascending aorta dimension. IVC The inferior vena cava appears normal. CONCLUSIONS Normal transthoracic echocardiogram. There are no prior echocardiogram studies to compare. Dr. Jarod Rush MD (Electronically Signed) Final Date: 26 March 2022 15:18 S
[2022-03-26 06:00] VITALS: PULSE 112
[2022-03-26 06:09] LABS: Estmated Average Glucose 117; Hemoglobin A1C 5.7 % (4.0-6.0)
[2022-03-26 06:14] LABS: Troponin 5 2HR 12.71 ng/L (0-15)
[2022-03-26 06:20] LABS: NT Pro B Type Natriuretic Pept 37 pg/mL (0-125); Thyroid Stimulating Hormone 3.54 uIU/mL (0.27-4.20)
[2022-03-26 06:36] LABS: Troponin 5 2HR Delta 0.71 ABS# (0-10)
[2022-03-26] MEDS: dilTIAZem 30 mg Tablet PO ×2 (06:43→12:32)
[2022-03-26] MEDS: acetaminophen 500 mg Tablet PO (06:43)
[2022-03-26] MEDS: enoxaparin 40 mg/0.4 mL Syringe SUBCUT (06:44)
[2022-03-26 07:12] VITALS: BP 132/71; PULSE 97; RESP 12; TEMP 36.7; O2SAT 93
[2022-03-26 07:18] VITALS: PULSE 93; RESP 16; O2SAT 94
--- NOTE | 2022-03-26 08:14 | ECG_ITS ---
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 Measurements Intervals [place] Rate: 63 P: 4 VA: 169 QRS: 37 QRSD: 104 T: 39 QT: 414 QTc: 427 Interpretive Statements SINUS RHYTHM Compared to ECG 03/26/2022 06:18:02 Atrial fibrillation no longer present Ventricular premature complex(es) no longer present Aberrant conduction of supraventricular beat(s) no longer present Electronically Signed On 03-26-2022 18:24:28 FOUNDER by Beck Mcdaniel M.D. [id number]
[2022-03-26 08:34] LABS: Amphetamines Screen Urine Negative (Negative); Barbiturates Screen Urine Negative (Negative); Benzodiazepines Screen Urine Positive (Negative); Cocaine Screen Urine Negative (Negative); Opiate Screen Urine Negative (Negative); PCP Screen Urine Negative (Negative); THC Screen Urine Negative (Negative)
--- NOTE | 2022-03-26 08:37 | PC.CHAP ---
Pastoral Care Encounter/Spiritual Assessment Type of Contact [] Declined spring layer visit [] Patient/Family/Request visit [] Outpatient visit [] Follow-up visit [] Physician referral [] Code/Alert [x] Routine visit [] Staff referral [] Actively dying [] Patient sleeping [] Family support [] [] Out of room [] Palliative care [] [] Receiving care in room [] Pre-surgical visit [] Trauma [] Long length of stay [] ICU visit [] Other: Relational/Emotional Strength [x] Patient feels connected with others/family/visitors/staff [] Distress [] Loneliness/isolation [] Abandonment Spirituality of Patient [x] Person of Tiffany [] Attends Alevism of their Tiffany [x] Believes in Prayer [] Reads Bible or Religion materials [] There are Spiritual issues to be addressed Observatory Director Interventions [x] Prayer [x] Active listening [x] Non-anxious presence [x] Spiritual/emotional support [] Crisis/trauma care [] Spiritual counseling [] Bereavement support [] Provided bereavement packet [] Provided Bible/devotional materials [] Provided toy/stuffed animal, coloring book to patient or family member [] Provided Communion [] Anointing/[place] [] Salvation [x] Completed spiritual assessment [] Other: Impact on Illness or Injury [] Angry [] Fearful [] Anxious [] Often cries [] Exhaustion [] Unable to work [] Unable to attend alevism [] Unable to walk/stand [] Unable to read [] Unable to drive [] Unable to eat/drink [] Unable to sleep [] Unable to be with family [] Patient intubated [] Other: Summary Time spent with patient 10m
[2022-03-26] MEDS: aspirin 81 mg EC Tablet PO (09:22)
[2022-03-26] MEDS: FUROsemide 10 mg/mL SDV 4mL 40 MG IVP (09:51)
[2022-03-26] MEDS: metoprolol tartrate 25 mg Tablet PO (09:51)
[2022-03-26 10:02] LABS: Troponin 5 6HR 16.11 ng/L (0-15)
[2022-03-26 10:03] LABS: Magnesium 1.6 mg/dL (1.7-2.3); Troponin 5 6HR Delta 4.11 ng/L (0-12)
[2022-03-26 10:48] VITALS: BP 155/82; PULSE 63; RESP 18
[2022-03-26] MEDS: perflutren protein-a microsphr 0.22 mg/mL SDV 3 mL IV (10:59)
--- NOTE | 2022-03-26 11:55 | PM.DCS ---
Discharge Providers Date of Admission: 03/26/22 05:36 Date of Discharge: March 26, 2022 Attending Provider at Admission: Ming Broussard MD Attending Provider at Discharge: Derek Millan MD Primary Care Provider: Dawn Barrios APN Diagnoses at Discharge Discharge Diagnosis (1) HTN (hypertension): Status: Acute (2) Atrial fibrillation with rapid ventricular response: Status: Acute Reason for Visit Reason for Visit: fast hr Hospital Course Hospital Course This is a 46-year-old male with a past medical history of hypertension, atrial fibrillation, who presents to [facility] due to chest palpitations and shortness of breath Patient has a diagnosis of atrial fibrillation, he actually presented to the emergency room in February was diagnosed with atrial fibrillation, however he did not want to be admitted, was discharged on Metroprolol and aspirin. However he ran out of metoprolol. He presents [facility] for A. fib with RVR, placed on Cardizem drip monitored in the 6 cardiac stepdown unit. He converted to normal sinus rhythm, transition to his home Metroprolol 25 twice daily, added Cardizem 120 every 24 hours. He was monitored overall he clinically improved, discharged home with close follow-up with cardiology next week. He is [id number] 2 score was 1, stroke risk was 0.6, discharged on aspirin. Physical Exam Const: COMMON NORMALS: no acute distress and patient oriented x3 Resp: COMMON NORMALS: normal respiratory effort, No retractions, No use of accessory muscles and clear to auscultation bilaterally AUSCULTATION: clear to auscultation bilaterally Cardio: COMMON NORMALS: regular rate, regular rhythm, S1 normal heart sound present and S2 normal heart sound present RATE: regular rate RHYTHM: regular rhythm HEART SOUNDS: S1 normal heart sound present and S2 normal heart sound present GI: COMMON NORMALS: Normal to inspection, nondistended, normoactive bowel sounds present and non-tender Extremity: COMMON NORMALS: no pedal edema Neuro: COMMON NORMALS: patient oriented x3 Psych: COMMON NORMALS: mental status grossly normal Discharge Data Studies Completed and Pending Completed Studies During Hospitalization Category Date Time Status XR chest 1V portable [id number] Stat Exams 03/26/22 02:14 Completed Pending at discharge Category Date Time Status Basic Metabolic Panel AM LABS Lab 03/27/22 04:00 Ordered Complete Blood Count w/Auto AM LABS Lab 03/27/22 04:00 Ordered Magnesium AM LABS Lab 03/27/22 04:00 Ordered CV. echo wo/w contrast [id number] Routine Ultrasound 03/26/22 05:36 Taken Radiology Impressions Chest X-Ray 03/26/22 02:14 IMPRESSION: 1. Suspect mild lateral left lower lung opacities, see above discussion. 2. Other findings discussed above. Laboratory Results WBC 5.6 10^3/uL (4.0-10.0) 03/26/22 02:12 RBC 4.65 10^6/uL (4.1-5.3) 03/26/22 02:12 Hgb 14.6 g/dL (11.7-16.6) 03/26/22 02:12 Hct 42.4 % (42.0-52.0) 03/26/22 02:12 MCV 91.2 fl (80-94) 03/26/22 02:12 MCH 31.4 pg (28.0-34.0) 03/26/22 02:12 MCHC 34.4 g/dL (30.0-36.0) 03/26/22 02:12 RDW 12.9 % (12.1-15.1) 03/26/22 02:12 Plt Count 213 10^3/cmm (130-400) 03/26/22 02:12 MPV 10.8 fL (7.4-10.4) H 03/26/22 02:12 Neut % (Auto) 48.9 % 03/26/22 02:12 Lymph % (Auto) 40.6 % 03/26/22 02:12 [place] % (Auto) 6.8 % 03/26/22 02:12 Eos % (Auto) 2.5 % 03/26/22 02:12 Baso % (Auto) 0.5 % 03/26/22 02:12 Neut # (Auto) 2.71 10^3/uL (1.8-7.7) 03/26/22 02:12 Lymph # (Auto) 2.3 10^3/uL (0.8-4.8) 03/26/22 02:12 [place] # (Auto) 0.4 10^3/uL (0.2-0.9) 03/26/22 02:12 Eos # (Auto) 0.1 10^3/uL (0.0-0.8) 03/26/22 02:12 Baso # (Auto) 0.0 10^3/uL (0.0-0.1) 03/26/22 02:12 Nucleated RBC % (auto) 0 % 03/26/22 02:12 Nucleated RBCs # 0.0 /100WBC 03/26/22 02:12 D-Dimer <= 0.27 ug/mIFEU (0-0.59) 03/26/22 02:12 Sodium 140 mmol/L (136-145) 03/26/22 02:12 Potassium 3.8 mmol/L (3.5-5.1) 03/26/22 02:12 Chloride 101 mmol/L (98-107) 03/26/22 02:12 Carbon Dioxide 26 mmol/L (22-29) 03/26/22 02:12 Anion Gap 16.8 (5-19) 03/26/22 02:12 BUN 15 mg/dL (6-20) 03/26/22 02:12 Creatinine 1.0 mg/dL (0.7-1.2) 03/26/22 02:12 GFR Calculation 79.8 mL/min (90-130) L 03/26/22 02:12 Glucose 97 mg/dL (65-115) 03/26/22 02:12 Estimat Average Glucose 117 03/26/22 05:40 Hemoglobin A1c 5.7 % (4.0-6.0) 03/26/22 05:40 Calculated Osmolality 291 mOsm/kg (285-295) 03/26/22 02:12 Calcium 9.8 mg/dL (8.5-10.5) 03/26/22 02:12 Magnesium 1.6 mg/dL (1.7-2.3) L 03/26/22 09:30 Total Bilirubin 0.3 mg/dL (0.15-1.2) 03/26/22 02:12 AST 32 U/L (0-40) 03/26/22 02:12 ALT 43 U/L (0-41) H 03/26/22 02:12 Alkaline Phosphatase 68 U/L (40-130) 03/26/22 02:12 Troponin T Baseline 12 ng/L (0-15) 03/26/22 02:12 Troponin T 120 Minute 12.71 ng/L (0-15) 03/26/22 05:40 Delta Troponin T 0.71 ABS# (0-10) 03/26/22 05:40 Troponin T Hi Sens 6Hr 16.11 ng/L (0-15) H 03/26/22 09:30 Troponin T Hi Sens 6Hr Delta 4.11 ng/L (0-12) 03/26/22 09:30 NT-Pro-B Natriuret Pep 37 pg/mL (0-125) 03/26/22 05:40 Total Protein 7.4 g/dL (6.6-8.7) 03/26/22 02:12 Albumin 4.4 g/dL (3.5-5.2) 03/26/22 02:12 Globulin 3.0 g/dL (1.3-4.6) 03/26/22 02:12 TSH 3.54 uIU/mL (0.27-4.20) 03/26/22 05:40 Urine Opiates Screen Negative ng/mL (Negative) 03/26/22 08:10 Ur Barbiturates Screen Negative ng/mL (Negative) 03/26/22 08:10 Ur Phencyclidine Scrn Negative ng/mL (Negative) 03/26/22 08:10 Ur Amphetamines Screen Negative ng/mL (Negative) 03/26/22 08:10 U Benzodiazepines Scrn Positive ng/mL (Negative) H 03/26/22 08:10 Urine Cocaine Screen Negative ng/mL (Negative) 03/26/22 08:10 U Marijuana (THC) Screen Negative ng/mL (Negative) 03/26/22 08:10 Vitals Last Vital Signs Temp 98.0 F 03/26/22 07:12 Pulse 63 03/26/22 10:48 Resp 18 03/26/22 10:48 BP 155/82 03/26/22 10:48 Pulse Ox 94 03/26/22 07:18 O2 Del Method 03/26/22 07:18 Discharge Plan Discharge Patient Disposition: Home Condition: Stable Prescriptions: New Cardizem CD 120 mg capsule,extended release 24hr 120 mg PO DAILY 30 Days Qty: 30 0RF Continued escitalopram oxalate [Lexapro] 10 mg tablet 20 mg PO DAILY aspirin 325 mg capsule 325 mg PO DAILY Qty: 30 0RF gabapentin 300 mg capsule 300 mg PO QID tramadol 50 mg tablet 50 mg PO Q4H PRN (Reason: Pain) cyclobenzaprine 10 mg tablet 10 mg PO BID PRN (Reason: Spasms) triamterene-hydrochlorothiazid 37.5-25 mg tablet 1 tab PO DAILY alprazolam 1 mg tablet 1 mg PO TID metoprolol tartrate 25 mg tablet 25 mg PO BID 30 Days Qty: 60 0RF Discontinued ibuprofen [IBU] 800 mg tablet 800 mg PO DAILY doxycycline hyclate 100 mg capsule 100 mg PO BID Discharge Orders: Discharge Order (Routine); Ordered 03/26/22 Ordered By: Derek Millan Referrals: Danica Maldonado MD [Physician] - 4-7 days Sunny Reagan MD [Physician] - 03/31/22 2:45 pm Discharge Diet: Cardiac Discharge Activity: Resume usual activity Patient Instructions: Opioid Safety Activity Restrictions/Additional Instructions: - If you have recurrent shortness of breath or chest pain or palpitations go to the emergency room -Please follow-up with primary care -Please follow-up with cardiology Discharge Attestations Time Spent in Discharge Care*: less than 30 min Quality Metrics Clinical Quality Measures [ No reported AMI, CVA or VTE this stay] Coding Level of Care Code Acute Chg FW DC note Diagnoses HTN (hypertension) I10 Atrial fibrillation with rapid ventricular response I48.91
[2022-03-26 14:44] VITALS: BP 155/82; PULSE 63; RESP 18
--- NOTE | 2022-03-26 16:16 | PC.NURSE ---
discharge instructions given and explained.pt verb understanding of instructions.discharged via ambulatory to exit.spouse to drive pt home.
== END 2022-03-26 16:17 | disposition home or self-care (01) | DRG 309 ==
LOC: ER 03:33 → CSU 05:48
PROVIDERS: Admitting Provider Internal Medicine; Emergency Provider Emergency Medicine; PCP Nurse Practitioner Family; Visit Provider Family Medicine
DX: I48.91 Unspecified atrial fibrillation (principal); Z68.42 Body mass index [BMI] 45.0-49.9, adult; I10 Essential (primary) hypertension; Z79.891 Long term (current) use of opiate analgesic; F17.290 Nicotine dependence, other tobacco product, uncomplicated; E66.01 Morbid (severe) obesity due to excess calories; G47.30 Sleep apnea, unspecified
CPT/HCPCS: 36415; 71045; 80053; 80306; 83036; 83735; 83880; 84443; 84484; 85025; 85378; 93005; 96372; 96374; 99291; C8929; J1650; J1940; J3490; J7030; Q9956

== ENCOUNTER 2022-07-10 17:30 | Emergency (ER) | payer OTHER, SELFPAY ==
[2022-07-10 17:37] VITALS: BP 123/74; PULSE 87; RESP 16; TEMP 36.5; O2SAT 96
--- NOTE | 2022-07-10 18:00 | XRR_ITS ---
PROCEDURE INFORMATION: Exam: XR Chest Exam date and time: 07/10/2022 6:09 PM Age: 47 years old Clinical indication: Shortness of breath; Additional info: SOB TECHNIQUE: Imaging protocol: Radiologic exam of the chest. Views: 1 view. COMPARISON: CR (CHEST, ) 03/26/2022 2:18 AM FINDINGS: Lungs: Visualized portions of the lungs are clear. Pleural spaces: Unremarkable. No pleural effusion. No pneumothorax. Heart/Mediastinum: Heart is within normal limits of size. Bones/joints: There are degenerative changes in the thoracic spine. XR/XR chest 1V portable [id number] IMPRESSION: No acute infiltrate.
--- NOTE | 2022-07-10 18:08 | CTR_ITS ---
PROCEDURE INFORMATION: Exam: CT Abdomen And Pelvis Without Contrast Exam date and time: 07/10/2022 6:26 PM Age: 47 years old Clinical indication: Abdominal pain; Patient HX: Patient fell three days ago, generalized muscle pain with low back pain; Additional info: Abd pain TECHNIQUE: Imaging protocol: Computed tomography of the abdomen and pelvis without contrast. Sagittal and coronal reformatted images were created and reviewed. Radiation optimization: All CT scans at this facility use at least one of these dose optimization techniques: automated exposure control; mA and/or kV adjustment per patient size (includes targeted exams where dose is matched to clinical indication); or iterative reconstruction. REPORTING DATA: Count of CT and Cardiac NM exams in prior 12 months: This patient has received [address] and 0 known cardiac nuclear medicine studies in the 12 months prior to the current study. COMPARISON: CR (CHEST, ) 07/10/2022 6:09 PM RADIATION DOSE METRICS: Total DLP (mGy-cm): 1468.46 FINDINGS: Lungs: Calcified granuloma in the right lower lobe. Visualized lungs are clear. Pleural spaces: No pleural effusion. Heart: Stable mild enlargement of the heart. Liver: Nodular contour of the liver. The liver is mildly enlarged measuring 20.5 cm in length (series 6, image 71). Gallbladder and bile ducts: The gallbladder is unremarkable. No biliary ductal dilatation. Pancreas: The pancreas is unremarkable. No pancreatic ductal dilatation. Spleen: The spleen is unremarkable. Adrenal glands: The right and left adrenal glands are unremarkable. Kidneys and ureters: The right kidney is unremarkable. Simple cyst in the left kidney measuring 1.9 cm (series 3, image 49). The right and left ureters are unremarkable. Stomach and bowel: Scattered diverticula in the colon. No evidence for diverticulitis. Ingested contents in the stomach. No acute abnormality in the small bowel. No acute abnormality in the colon. Appendix: The appendix is visualized and is unremarkable. No findings to suggest acute appendicitis. Intraperitoneal space: No free intraperitoneal air. No ascites. No loculated fluid collections to suggest an abscess. Vasculature: Mild atherosclerotic changes in the visualized arteries. No evidence for aortic aneurysm or aortic dissection. No evidence for aortic aneurysm. Lymph nodes: No lymphadenopathy. Urinary bladder: The bladder is incompletely filled, which can limit evaluation. No focal abnormality in the bladder however. Reproductive: Nonspecific parenchymal calcifications in the prostate gland. Bones/joints: Moderate degenerative changes at both the right and left hips. Mild degenerative changes of the right and left sacroiliac joints. Multilevel degenerative changes of varying severity in the visualized spine. Mild spinal canal stenosis at L2-L3, L4-L5, and L5-S1. Moderate spinal canal stenosis at L3-L4. Multilevel foraminal stenosis of varying severity in the visualized spine. 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 There is an acute fracture through the ossified anterior longitudinal ligament extending posteriorly into the T11 vertebral body in a horizontal fashion, the fracture line then extends vertically to the superior endplate of T11 (series 6, images 44-53). No loss of height at T11. Age-indeterminate nondisplaced fracture of the superior tip of the left L2 superior facet (series 6, image 46 and series 5, images 62-63). Soft tissues: Small paravertebral soft tissue hematoma at T11. CT/CT abdomen pelvis wo con [id number] IMPRESSION: 1. 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 There is an acute fracture through the ossified anterior longitudinal ligament extending posteriorly into the T11 vertebral body in a horizontal fashion, the fracture line then extends vertically to the superior endplate of T11. No loss of height at T11. Findings are concerning for possible unstable fracture. Small paravertebral soft tissue hematoma at T11. 2. Age-indeterminate nondisplaced fracture of the superior tip of the left L2 superior facet. 3. Scattered diverticula in the colon. No evidence for diverticulitis. 4. Mild hepatomegaly. Findings consistent with cirrhosis in the liver. 5. Incidental/nonacute findings are listed in the report. COMMENTS: Consistent with the [employer]'s Incidental Findings Committee white paper (J Am Augie Radiol 2018): Any incidental renal lesion less than 1 cm or classified as too small to characterize, or any incidental cystic renal lesion characterized as simple-appearing, is likely benign. No follow-up imaging is recommended for these lesions per consensus recommendations based on imaging criteria.
--- NOTE | 2022-07-10 18:08 | CTR_ITS ---
PROCEDURE INFORMATION: Exam: CT Head Without Contrast Exam date and time: 07/10/2022 6:23 PM Age: 47 years old Clinical indication: Injury or trauma; Fall; Concussion/head injury; Without loss of consciousness TECHNIQUE: Imaging protocol: Computed tomography of the head without contrast. Radiation optimization: All CT scans at this facility use at least one of these dose optimization techniques: automated exposure control; mA and/or kV adjustment per patient size (includes targeted exams where dose is matched to clinical indication); or iterative reconstruction. REPORTING DATA: Count of CT and Cardiac NM exams in prior 12 months: This patient has received [address] and 0 known cardiac nuclear medicine studies in the 12 months prior to the current study. COMPARISON: No relevant prior studies available. RADIATION DOSE METRICS: Total DLP (mGy-cm): 1268.48 FINDINGS: Brain: Normal. No hemorrhage. Unremarkable white matter. No mass effect. Cerebral ventricles: No ventriculomegaly. Paranasal sinuses: Visualized sinuses are unremarkable. No fluid levels. Mastoid air cells: Visualized mastoid air cells are well aerated. Bones/joints: Unremarkable. No acute fracture. Soft tissues: Unremarkable. CT/CT head wo con* [id number] IMPRESSION: No acute intracranial abnormality.
--- NOTE | 2022-07-10 18:09 | ED_ITS ---
HPI - Syncope General: Chief Complaint: Syncope Stated Complaint: Blood Pressure Low, Seeing stars Time Seen by Provider: 07/10/22 17:45 Source: patient Mode of arrival: ambulatory Limitations: no limitations History of Present Illness: 47-year-old male states that he had a syncopal event 2 weeks ago he states when this happened he did hit his head he has since then has been having some abdominal pain and headaches and has had 3-4 syncopal events since then. He states when he stands up he feels lightheaded see stars and then passes out he is on multiple medications currently he did recently started Cardizem for A-fib he is also on metoprolol. He denies any vomiting or diarrhea. He rates his headache a 3 out of 10. Associated symptoms: Reports abdominal pain and headache(s); Deny fever(s) Review of Systems Const: Denies: fever(s), chills, body aches or change in appetite Eyes: Denies: blurry vision or eye discomfort ENMT: Denies: throat pain or dental pain Card: Reports: syncope Resp: Denies: dyspnea GI: Reports: abdominal pain : Denies: dysuria Musc: Denies: neck pain or back pain Skin/Breast: Denies: rash Neuro: Reports: headache(s) Psych: Denies: depression Lyle/Lymph: Denies: easy bruising All/Imm: Denies: urticaria PFSH ED PFSH: Medical History Afib Hypertension Neuropathy No pertinent family history Periodic heart flutter Surgical History History of hand surgery left hand No pertinent past surgical history Family History (Updated 03/31/22 @ 15:16 by Marisol Marr LPN) Grandfather Heart disease Grandmother Dementia Other Hypertension Denies family history of Diabetes CAD (coronary artery disease) Clotting disorder Hyperlipidemia Psychiatric illness Chronic kidney disease (CKD) Anesthesia complication Bleeding disorder Lung disease Cancer Stroke Social History Smoking and tobacco status: current every day smoker e-cigarettes E-Cigarette Details: e-cigarette E-cig/vape details: Hx 15PY tobacco use, quit 8yrs ago Alcohol intake: current Alcohol type: hard liquor Lives independently: Yes Household members: family Marital status: Number of children: 2 Current occupational status: employed 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 Current gender identity: Male Agree to transfusion: Yes Physical Exam Const: COMMON NORMALS: no acute distress, patient oriented x3 and healthy appearing HENMT: COMMON NORMALS: normocephalic and atraumatic HEAD & SCALP: normocephalic and atraumatic Eye: COMMON NORMALS: Equal, round and reactive pupils present and EOMs intact bilaterally PUPIL: Yes Equal, round and reactive pupils present Neck/C-Spine: COMMON NORMALS: full ROM and supple Chest: COMMONS NORMALS: normal inspection of the chest and normal palpation of entire chest wall Resp: COMMON NORMALS: normal respiratory effort, No retractions, No use of accessory muscles and clear to auscultation bilaterally AUSCULTATION: clear to auscultation bilaterally Cardio: COMMON NORMALS: regular rate, regular rhythm and No murmurs present (Cardio) RATE: regular rate RHYTHM: regular rhythm GI: COMMON NORMALS: Normal to inspection, nondistended, normoactive bowel sounds present, Soft to palpation, non-tender and no masses PALPATION: Yes Soft to palpation Extremity: COMMON NORMALS: normal to inspection and full ROM Neuro: COMMON NORMALS: patient oriented x3, moves all extremities and no focal motor deficits Psych: COMMON NORMALS: mental status grossly normal, Normal thought process present and cooperative THOUGHT PROCESS: Normal thought process present Skin: COMMON NORMALS: no rashes or lesions noted and no wounds GENERAL SKIN EXAM: no rashes or lesions noted Course Vital Signs: Vital signs: Vital Signs Temperature 97.7 F 07/10/22 17:37 Pulse Rate 87 07/10/22 17:37 Respiratory Rate 16 07/10/22 17:37 Blood Pressure 113/63 07/10/22 18:48 Pulse Oximetry 97 07/10/22 18:48 Oxygen Delivery Me thod 07/10/22 18:48 MDM - Syncope Medical Decision Making Patient presents here with multiple syncopal events orthostatic likely due to his blood pressure medicine he also has elevated creatinine as well as some dehydration we will give him IV fluids here on his CT of his spine he does have a T11 fracture that is possibly unstable but do not have spine on here I did speak to [facility] will transfer there for neurosurgery capability Lab Data 07/10/22 18:35 07/10/22 18:35 Radiology Impressions Chest X-Ray 07/10/22 18:00 IMPRESSION: No acute infiltrate. Abdomen/Pelvis CT 07/10/22 18:08 IMPRESSION: 1. 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 There is an acute fracture through the ossified anterior longitudinal ligament extending posteriorly into the T11 vertebral body in a horizontal fashion, the fracture line then extends vertically to the superior endplate of T11. No loss of height at T11. Findings are concerning for possible unstable fracture. Small paravertebral soft tissue hematoma at T11. 2. Age-indeterminate nondisplaced fracture of the superior tip of the left L2 superior facet. 3. Scattered diverticula in the colon. No evidence for diverticulitis. 4. Mild hepatomegaly. Findings consistent with cirrhosis in the liver. 5. Incidental/nonacute findings are listed in the report. COMMENTS: Consistent with the [place] [employer]'s Incidental Findings Committee white paper (J Am Augie Radiol 2018): Any incidental renal lesion less than 1 cm or classified as too small to characterize, or any incidental cystic renal lesion characterized as simple-appearing, is likely benign. No follow-up imaging is recommended for these lesions per consensus recommendations based on imaging criteria. ADDENDUM: 07/10/221911 THIS REPORT CONTAINS FINDINGS THAT MAY BE CRITICAL TO PATIENT CARE. The findings were verbally communicated via telephone conference with AVANI Lagunas at 7:11 PM CDT on 07/10/2022. The findings were acknowledged and understood. Head CT 07/10/22 18:08 IMPRESSION: No acute intracranial abnormality. Laboratory Results WBC 5.5 10^3/uL (4.0-10.0) 07/10/22 18:35 RBC 4.14 10^6/uL (4.1-5.3) 07/10/22 18:35 Hgb 13.6 g/dL (11.7-16.6) 07/10/22 18:35 Hct 39.8 % (42.0-52.0) L 07/10/22 18:35 MCV 96.1 fl (80-94) H 07/10/22 18:35 MCH 32.9 pg (28.0-34.0) 07/10/22 18:35 MCHC 34.2 g/dL (30.0-36.0) 07/10/22 18:35 RDW 12.8 % (12.1-15.1) 07/10/22 18:35 Plt Count 183 10^3/cmm (130-400) 07/10/22 18:35 MPV 11.4 fL (7.4-10.4) H 07/10/22 18:35 Neut % (Auto) 69.1 % 07/10/22 18:35 Lymph % (Auto) 19.6 % 07/10/22 18:35 [place] % (Auto) 8.6 % 07/10/22 18:35 Eos % (Auto) 1.8 % 07/10/22 18:35 Baso % (Auto) 0.5 % 07/10/22 18:35 Neut # (Auto) 3.78 10^3/uL (1.8-7.7) 07/10/22 18:35 Lymph # (Auto) 1.1 10^3/uL (0.8-4.8) 07/10/22 18:35 [place] # (Auto) 0.5 10^3/uL (0.2-0.9) 07/10/22 18:35 Eos # (Auto) 0.1 10^3/uL (0.0-0.8) 07/10/22 18:35 Baso # (Auto) 0.0 10^3/uL (0.0-0.1) 07/10/22 18:35 Nucleated RBC % (auto) 0 % 07/10/22 18:35 Nucleated RBCs # 0.0 /100WBC 07/10/22 18:35 Sodium 132 mmol/L (136-145) L 07/10/22 18:35 Potassium 3.8 mmol/L (3.5-5.1) 07/10/22 18:35 Chloride 89 mmol/L (98-107) L 07/10/22 18:35 Carbon Dioxide 25 mmol/L (22-29) 07/10/22 18:35 Anion Gap 21.8 (5-19) H 07/10/22 18:35 BUN 70 mg/dL (6-20) H 07/10/22 18:35 Creatinine 3.3 mg/dL (0.7-1.2) H 07/10/22 18:35 GFR Calculation 20.0 mL/min (90-130) L 07/10/22 18:35 Glucose 105 mg/dL (65-115) 07/10/22 18:35 Calculated Osmolality 295 mOsm/kg (285-295) 07/10/22 18:35 Calcium 9.1 mg/dL (8.5-10.5) 07/10/22 18:35 Total Bilirubin 0.4 mg/dL (0.15-1.2) 07/10/22 18:35 AST 77 U/L (0-40) H 07/10/22 18:35 ALT 72 U/L (0-41) H 07/10/22 18:35 Alkaline Phosphatase 61 U/L (40-130) 07/10/22 18:35 Troponin T Baseline 33 ng/L (0-15) H 07/10/22 18:35 Total Protein 7.8 g/dL (6.6-8.7) 07/10/22 18:35 Albumin 4.5 g/dL (3.5-5.2) 07/10/22 18:35 Globulin 3.3 g/dL (1.3-4.6) 07/10/22 18:35 EKG Data EKG 1: I personally reviewed and interpreted this EKG as follows: EKG interpretation date: 07/10/22 EKG interpretation time: 18:53 Interpretation: nsr hr [address] or t wave abnormalities qrs 110 qtc 441 Discharge Plan Discharge Patient Disposition: Xfer Short-Term Hosp Clinical Impression: Vasovagal syncope, Closed fracture of T11 vertebra Condition: Stable Prescriptions: No Action escitalopram oxalate [Lexapro] 10 mg tablet 20 mg PO DAILY olmesartan 40 mg tablet 40 mg PO DAILY aspirin 325 mg capsule 325 mg PO DAILY Qty: 30 0RF tramadol 50 mg tablet 50 mg PO Q4H PRN (Reason: Pain) cyclobenzaprine 10 mg tablet 10 mg PO BID PRN (Reason: Spasms) triamterene-hydrochlorothiazid 37.5-25 mg tablet 1 tab PO DAILY alprazolam 1 mg tablet 1 mg PO TID metoprolol tartrate 25 mg tablet 25 mg PO BID 30 Days Qty: 60 0RF gabapentin 300 mg capsule 300 mg PO QID PRN Referrals: Barrios,Dawn, REGIONAL SALES DIRECTOR [Primary Care Provider] - Coding Level of Care Code ED [employer] for Chg Laura
[2022-07-10 18:48] VITALS: BP 113/63; O2SAT 97
--- NOTE | 2022-07-10 18:53 | ECG_ITS ---
[facility] Test Date: 2022-07-10 Pat Name: Grupo Levy Department: Room: Gender: Male Rn Surgical Pcu: : 1975 Requested By: Naya Ron Order Number: [id number] Leigh MD: Rakesh Rapp M.D. Measurements Intervals [place] Rate: 60 P: 37 SC: 156 QRS: 45 QRSD: 110 T: 50 QT: 439 QTc: 442 Interpretive Statements SINUS RHYTHM Compared to ECG 03/26/2022 08:22:23 No significant changes Electronically Signed On 07-11-2022 15:54:31 CDT by Rakesh Rapp M.D. [id number]
[2022-07-10 19:08] LABS: Basophils % 0.5 %; Eosinophils # 0.1 10^3/uL (0.0-0.8); Eosinophils % 1.8 %; Hematocrit 39.8 % (42.0-52.0); Hemoglobin 13.6 g/dL (11.7-16.6); Lymphocytes # 1.1 10^3/uL (0.8-4.8); Lymphocytes % 19.6 %; Mean Corpuscular HGB Conc 34.2 g/dL (30.0-36.0); Mean Corpuscular Hemoglobin 32.9 pg (28.0-34.0); Mean Corpuscular Volume 96.1 fl (80-94); Mean Platelet Volume 11.4 fL (7.4-10.4); Monocytes # 0.5 10^3/uL (0.2-0.9); Monocytes % 8.6 %; Neutrophils # 3.78 10^3/uL (1.8-7.7); Neutrophils % 69.1 %; Nucleated Red Blood Cells % 0 %; Platelet Count 183 10^3/cmm (130-400); Red Blood Count 4.14 10^6/uL (4.1-5.3); Red Cell Distribution Width 12.8 % (12.1-15.1); White Blood Count 5.5 10^3/uL (4.0-10.0)
[2022-07-10 19:28] LABS: Alanine Aminotransferase 72 U/L (0-41); Albumin Level 4.5 g/dL (3.5-5.2); Alkaline Phosphatase 61 U/L (40-130); Anion Gap 21.8 (5-19); Aspartate Amino Transferase 77 U/L (0-40); Blood Urea Nitrogen 70 mg/dL (6-20); Calcium 9.1 mg/dL (8.5-10.5); Carbon Dioxide 25 mmol/L (22-29); Chloride 89 mmol/L (98-107); Globulin 3.3 g/dL (1.3-4.6); Glucose 105 mg/dL (65-115); Osmolality Calculated 295 mOsm/kg (285-295); Potassium 3.8 mmol/L (3.5-5.1); Sodium 132 mmol/L (136-145); Total Bilirubin 0.4 mg/dL (0.15-1.2); Total Protein 7.8 g/dL (6.6-8.7)
[2022-07-10] MEDS: sodium chloride 0.9% 1,000 ML 999 ML IV (19:28)
[2022-07-10 19:36] LABS: Troponin(5th) Baseline 33 ng/L (0-15)
--- NOTE | 2022-07-10 20:24 | ECG_ITS ---
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 Measurements Intervals [place] Rate: 58 P: 21 MT: 162 QRS: 34 QRSD: 121 T: 44 QT: 435 QTc: 431 Interpretive Statements SINUS BRADYCARDIA MODERATE INTRAVENTRICULAR CONDUCTION DELAY [110+ ms QRS DURATION] Compared to ECG 07/10/2022 18:53:32 Intraventricular conduction delay now present Sinus rhythm no longer present Electronically Signed On 07-11-2022 15:55:37 CDT by Rakesh Rapp M.D. [id number]
[2022-07-10 20:30] VITALS: BP 136/69; PULSE 56; RESP 16; O2SAT 95
[2022-07-10] MEDS: tetanus-dipt-pertussis 0.5 mL SDV IM (20:54)
[2022-07-10 21:19] LABS: Troponin 5 2HR 26.71 ng/L (0-15)
[2022-07-10 21:21] LABS: Troponin 5 2HR Delta -6.29 ABS# (0-10)
[2022-07-10 22:12] VITALS: BP 94/53; PULSE 59; RESP 16; O2SAT 95
[2022-07-10 22:21] VITALS: BP 119/52; PULSE 55; RESP 16; O2SAT 95
[2022-07-10 23:16] VITALS: BP 99/65
== END 2022-07-10 23:36 | disposition short-term general hospital (02) ==
PROVIDERS: Emergency Provider Emergency Medicine; PCP Nurse Practitioner Family
DX: R55 Syncope and collapse (principal); S22.089A Unspecified fracture of T11-T12 vertebra, initial encounter for closed fracture; Z79.82 Long term (current) use of aspirin; F17.290 Nicotine dependence, other tobacco product, uncomplicated; I10 Essential (primary) hypertension; W18.39XA Other fall on same level, initial encounter; Z23 Encounter for immunization
CPT/HCPCS: 36415; 70450; 71045; 74176; 80053; 84484; 85025; 90471; 90715; 93005; 96360; 99285; J7030

== ENCOUNTER 2022-10-09 13:32 | Emergency (ER) | payer OTHER, SELFPAY ==
[2022-10-09 13:41] VITALS: BP 201/95; PULSE 75; RESP 17; O2SAT 93; BMI 46.1
--- NOTE | 2022-10-09 14:44 | XR_ITS ---
WS: [id number] Exam: XR chest 1V portable [id number] Date/Time of Exam: 10/09/2022 2:46 PM Reason For Exam: tachycardia Comparison 07/10/2022. Findings: The lungs are clear and fully expanded. Costophrenic angles are sharp. No infiltrates. Bronchovascula r relief appears normal. Cardiac silhouette is unremarkable. Bony elements are intact. XR/XR chest 1V portable [id number] IMPRESSION: Unremarkable chest radiograph.
[2022-10-09 14:46] VITALS: BP 147/85; PULSE 74
--- NOTE | 2022-10-09 14:53 | ECG_ITS ---
[facility] Test Date: 2022-10-09 Pat Name: Grupo Levy Department: Room: Gender: Male Psych Arnp: : 1975 Requested By: Nick Paez Order Number: [id number] Abraham MD: Danica Maldonado M.D. Measurements Intervals [place] Rate: 72 P: 34 LA: 140 QRS: 47 QRSD: 114 T: 42 QT: 419 QTc: 461 Interpretive Statements SINUS RHYTHM MODERATE INTRAVENTRICULAR CONDUCTION DELAY [110+ ms QRS DURATION] Compared to ECG 07/10/2022 20:24:55 Sinus bradycardia no longer present Electronically Signed On 10-09-2022 19:26:36 CDT by Danica Maldonado M.D. [email or web address] Information Technologyneshoba county general hospitalJule Gameuniversity hospitals [email or web address]/store/OM/[id number]
--- NOTE | 2022-10-09 14:57 | W.ED.GENADLT ---
HPI - General Adult General: Chief complaint: General Medical Stated complaint: feels afib, Time Seen by Provider: 10/09/22 14:43 History of Present Illness: Patient presents to the ER today with complaints of going into A-fib this morning with a heart rate about 140 beats a minute and also having high blood pressure with a pressure of being over 200. Patient states that this was all before he took his morning dose of metoprolol. Patient has taken his dose of metoprolol since then and now feels better. Patient is a heart rate of approximately 75 beats a minute and a blood pressure of approximately 150/100. Patient's denying any other complaints at this time. Review of Systems General: Reports: 10 or more systems reviewed and unremarkable except in HPI and below PFSH ED PFSH: Medical History Afib Hypertension Neuropathy No pertinent family history Periodic heart flutter Surgical History History of hand surgery left hand No pertinent past surgical history Family History Grandfather Heart disease Grandmother Dementia Other Hypertension Denies family history of Diabetes CAD (coronary artery disease) Clotting disorder Hyperlipidemia Psychiatric illness Chronic kidney disease (CKD) Anesthesia complication Bleeding disorder Lung disease Cancer Stroke Social History Smoking and tobacco status: current every day smoker e-cigarettes E-Cigarette Details: e-cigarette E-cig/vape details: Hx 15PY tobacco use, quit 8yrs ago Alcohol intake: current Alcohol type: hard liquor Substance/Drug Use: former Lives independently: Yes Household members: family Marital status: Number of children: 2 Current occupational status: employed 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 Current gender identity: Male Agree to transfusion: Yes Physical Exam Const: COMMON NORMALS: no acute distress, average body habitus, patient oriented x3, no limitations, healthy appearing, alert and well nourished HENMT: COMMON NORMALS: normocephalic, atraumatic, hearing grossly normal bilaterally, external ears normal, EAC's normal and Normal nasal mucous membranes and turbinates present HEAD & SCALP: normocephalic and atraumatic NOSE: Normal nasal mucous membranes and turbinates present EXTERNAL EAR: Yes external ears normal EXTERNAL AUDITORY CANAL: EAC's normal Neck/C-Spine: COMMON NORMALS: no JVD Resp: COMMON NORMALS: normal respiratory effort, No retractions, No use of accessory muscles and clear to auscultation bilaterally AUSCULTATION: clear to auscultation bilaterally Cardio: COMMON NORMALS: no JVD, regular rate, regular rhythm, S1 normal heart sound present, S2 normal heart sound present, No gallops present (Cardio), No clicks present (Cardio), No murmurs present (Cardio) and No rub (Cardio) RATE: regular rate RHYTHM: regular rhythm HEART SOUNDS: S1 normal heart sound present and S2 normal heart sound present GI: COMMON NORMALS: Normal to inspection, nondistended, normoactive bowel sounds present, Soft to palpation, non-tender, No hepatosplenomegaly present and no masses PALPATION: Yes Soft to palpation and Yes No hepatosplenomegaly present : COMMON NORMALS: Yes no CVA tenderness BLADDER/KIDNEY EXAM: Yes no CVA tenderness Back/Pelvis: COMMON NORMALS: no CVA tenderness Neuro: COMMON NORMALS: patient oriented x3 SENSORIUM/ORIENTATION: Yes alert Course Vital Signs: Vital signs: Vital Signs Pulse Rate 75 10/09/22 13:41 Respiratory Rate 17 10/09/22 13:41 Blood Pressure 201/95 10/09/22 13:41 Pulse Oximetry 93 10/09/22 13:41 Oxygen Delivery Me thod Room Air 10/09/22 13:41 MDM - General Adult Medical Decision Making Patient presents to the ER with complaints of paroxysmal A-fib this morning and high blood pressure also this morning before he took his medicine. Patient took his medicine that he feels better EKG was obtained which shows ventricular rate of 72 beats a minute, chest x-ray was obtained which appears normal to me. Lab work was dee. We will discharge patient with a diagnosis of paroxysmal A-fib and we will call him if any of his blood work comes back significantly abnormal. Patient should follow-up with his PCP in approximately 1 week or sooner as needed. EKG Data EKG 1: I personally reviewed and interpreted this EKG as follows: EKG interpretation date: 10/09/22 EKG interpretation time: 14:53 Prior EKG tracings: not available for review Interpretation: EKG shows ventricular rate of 72 beats minute, NE interval 140, QRS duration 114, QTc of 444, sinus rhythm with moderate intraventricular conduction delay, no ST-T wave changes Discharge Plan Discharge Patient Disposition: Home Clinical Impression: AF (paroxysmal atrial fibrillation), Hypertension Condition: Stable Prescriptions: No Action escitalopram oxalate [Lexapro] 10 mg tablet 20 mg PO DAILY olmesartan 40 mg tablet 40 mg PO DAILY aspirin 325 mg capsule 325 mg PO DAILY Qty: 30 0RF tramadol 50 mg tablet 50 mg PO Q4H PRN (Reason: Pain) cyclobenzaprine 10 mg tablet 10 mg PO BID PRN (Reason: Spasms) triamterene-hydrochlorothiazid 37.5-25 mg tablet 1 tab PO DAILY alprazolam 1 mg tablet 1 mg PO TID metoprolol tartrate 25 mg tablet 25 mg PO BID 30 Days Qty: 60 0RF gabapentin 300 mg capsule 300 mg PO QID PRN Discharge Orders: Discharge ED (Routine); Ordered 10/09/22 Ordered By: Nick Paez Referrals: Denis,PATSY SeymourN [Primary Care Provider] - 1 week Patient Instructions: A-fib (Atrial Fibrillation) (ED) Activity Restrictions/Additional Instructions: Please follow-up with your PCP in approximately 1 week or sooner as needed. Please take your medicine as directed. Lab work was obtained which if it reveals any significant abnormality we will call to inform you. Coding Level of Care Code ED Assistant Inventory Manager for Tess Sanchez
[2022-10-09 15:21] LABS: Basophils % 0.8 %; Eosinophils # 0.1 10^3/uL (0.0-0.8); Eosinophils % 3.2 %; Hematocrit 44.3 % (42.0-52.0); Hemoglobin 14.5 g/dL (11.7-16.6); Lymphocytes # 1.3 10^3/uL (0.8-4.8); Lymphocytes % 33.2 %; Mean Corpuscular HGB Conc 32.7 g/dL (30.0-36.0); Mean Corpuscular Hemoglobin 31.3 pg (28.0-34.0); Mean Corpuscular Volume 95.5 fl (80-94); Mean Platelet Volume 10.9 fL (7.4-10.4); Monocytes # 0.4 10^3/uL (0.2-0.9); Monocytes % 10.6 %; Neutrophils # 1.94 10^3/uL (1.8-7.7); Neutrophils % 51.7 %; Nucleated Red Blood Cells % 0 %; Platelet Count 120 10^3/cmm (130-400); Red Blood Count 4.64 10^6/uL (4.1-5.3); Red Cell Distribution Width 13.5 % (12.1-15.1); White Blood Count 3.8 10^3/uL (4.0-10.0)
[2022-10-09 15:22] VITALS: BP 157/97; PULSE 70; O2SAT 92
[2022-10-09 15:41] LABS: Alanine Aminotransferase 119 U/L (0-41); Albumin Level 3.9 g/dL (3.5-5.2); Alkaline Phosphatase 80 U/L (40-130); Aspartate Amino Transferase 125 U/L (0-40); Blood Urea Nitrogen 18 mg/dL (6-20); Calcium 8.9 mg/dL (8.5-10.5); Carbon Dioxide 20 mmol/L (22-29); Chloride 100 mmol/L (98-107); Globulin 3.3 g/dL (1.3-4.6); Glomerular Filtration Rate 143.2 mL/min (90-130); Glucose 102 mg/dL (65-115); Osmolality Calculated 282 mOsm/kg (285-295); Sodium 135 mmol/L (136-145); Total Bilirubin 0.5 mg/dL (0.15-1.2); Total Protein 7.2 g/dL (6.6-8.7)
[2022-10-09 15:46] LABS: Anion Gap 18.9 (5-19); Potassium 3.9 mmol/L (3.5-5.1)
== END 2022-10-09 15:23 | disposition home or self-care (01) ==
PROVIDERS: Emergency Provider Emergency Medicine; PCP Nurse Practitioner Family
DX: I48.0 Paroxysmal atrial fibrillation (principal); Z79.01 Long term (current) use of anticoagulants
CPT/HCPCS: 36415; 71045; 80053; 85025; 93005; 99285

== ENCOUNTER 2023-03-22 14:58 | Inpatient (IN) | payer OTHER, SELFPAY ==
[2023-03-22] VITALS (19 sets, daily range): BP systolic 120–183; BP diastolic 82–113; PULSE 73–144; RESP 13–26; TEMP 36.6–36.7; O2SAT 93–95; BMI 46.1
--- NOTE | 2023-03-22 15:22 | ECG_ITS ---
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 Measurements Intervals [place] Rate: 132 P: 237 FL: 167 QRS: 55 QRSD: 102 T: 48 QT: 288 QTc: 428 Interpretive Statements ECTOPIC ATRIAL TACHYCARDIA versus atrial flutter INCOMPLETE RIGHT BUNDLE BRANCH BLOCK [90+ ms QRS DURATION, TERMINAL R IN V1/V2, 40+ ms S IN I/aVL/V4/V5/V6] MODERATE ST DEPRESSION [0.05+ mV ST DEPRESSION] Compared to ECG 10/09/2022 14:53:16 Incomplete right bundle-branch block now present ST (T wave) deviation now present Sinus rhythm no longer present Intraventricular conduction delay no longer present Electronically Signed On 03-23-2023 15:53:35 COUNTER CHECKER by Jarod Rush M.D. [id number]
--- NOTE | 2023-03-22 15:25 | ED_ITS ---
HPI - Chest Pain 2 General: Chief Complaint: Arrhythmia/Palpitations Stated Complaint: pa said had irregular heart rate Time Seen by Provider: 03/22/23 15:25 History of Present Illness: 47-year-old male presents emergency depa rtment complaints of feeling like his heart is racing and he is having pressure in the middle of his chest. He states he drinks approximately 1 pint of liquor daily. He states that he started having these feelings of a racing heart this morning and it has not gotten any better. He states he recently saw his primary care provider and they decreased his angiotensin receptor binding medication by half. He states he does take Cardizem and metoprolol and has not had recent changes in that medication. He denies dizziness or lightheaded feeling. He denies vomiting but does endorse nausea. He states that nothing seems to make his chest pressure better and nothing seems to make it worse. He denies diaphoresis or dyspnea. He states his chest pressure is a 2 out of 10. Associated symptoms: Reports palpitations Review of Systems 2 General: Reports: 10 or more systems reviewed and unremarkable except in HPI and below Card: Reports: chest pain, palpitations, irregular heart rhythm and edema PFS ED 2 PFSH: Medical History Afib Hypertension Neuropathy No pertinent family history Periodic heart flutter Surgical History History of hand surgery left hand No pertinent past surgical history Family History Grandfather Heart disease Grandmother Dementia Other Hypertension Denies family history of Diabetes CAD (coronary artery disease) Clotting disorder Hyperlipidemia Psychiatric illness Chronic kidney disease (CKD) Anesthesia complication Bleeding disorder Lung disease Cancer Stroke Social History Smoking and tobacco/nicotine status: current every day tobacco/nicotine user e- cigarettes E-Cigarette Details: e-cigarette E-cig/vape details: Hx 15PY tobacco use, quit 8yrs ago Alcohol intake: current Alcohol type: hard liquor Substance/Drug Use: former Lives independently: Yes Household members: family Marital status: Number of children: 2 Current occupational status: employed 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 Vital signs reviewed as documented. HENMT: Normocephalic, atraumatic. Extermal ears with normal appearance without drainage. Nose without drainage, normal appearance. Mucus membranes moist. Neck is supple, No jugular venous distension, trachea is midline, no appreciable carotid bruits. No lymphadenopathy. No meningeal signs. Flexion, extension and lateral rotation is without pain. Eyes: Pupils are equal, round, reactive to light and accommodation. No scleral icterus. Extra-ocular movement are intact. Thorax is symmetrical and with equal rise and fall with respirations. Resp: Lungs are clear to auscultation. No wheezes, rales, crackles or ronchi at present. Cardio: Atrial fibrillation with rapid ventricular response.. Positive S1, S2. No appreciable murmurs, rubs or gallops. GI: Abdominal exam reveals normal bowel sounds to all quadrants. No organomegaly. No obvious palpable masses noted. No hepatomegally appreciated. Soft, nontender to palpation. Extremity: Extremities are non-edematous and both femoral and pedal pulses are 2+ and equal bilaterally. Moves all extremities well, sensation in all extremities. Neuro: Alert and oriented x4, person, place, time and situation. Cranial nerves II through XII are grossly intact, there is no focal neurological deficits that I can appreciate at present. Motor strength in the upper and lower extremities are equal and bilateral 5/5. Psych: Cooperative, calm, normal thought process, appropriate judgment. Skin: No lesions, rashes. Chronic venous stasis changes to the bilateral lower extremities Back: Symmetrical, no obvious deformity, No CVA tenderness Course 2 Vital Signs: Vital signs: Vital Signs Temperature 98.0 F 03/22/23 15:26 Pulse Rate 133 H 03/22/23 15:26 Respiratory Rate 16 03/22/23 15:26 Blood Pressure 155/98 03/22/23 15:26 Pulse Oximetry 95 03/22/23 15:26 Oxygen Delivery Me thod Room Air 03/22/23 15:26 MDM - Chest Pain Medical Decision Making Physical exam completed and documented, I will obtain serial cardiac enzymes, serial twelve-lead EKGs, chest x-ray, CBC, CMP, urinalysis, B-type natriuretic peptide, PT/PTT/INR, and a chest x-ray. I provide Cardizem IV push as well as a Cardizem drip given his twelve-lead EKG findings. I I have reviewed any pervious and pertinent medical records for assist in obtaining beneficial medical information to improved the care and treatment of the patient. I will contact the hospitalist for consultation and admission of the patient for continued evaluation treatment and care. Differential diagnosis to include new onset atrial fibrillation, myocardial infarction, electrolyte abnormality, myocardial toxicity secondary to chronic alcohol use. Lab Data 03/22/23 15:54 03/22/23 15:54 Laboratory Results WBC 5.21 10^3/uL (3.29-11.43) 03/22/23 15:54 RBC 4.41 10^6/uL (3.85-5.65) 03/22/23 15:54 Hgb 14.50 g/dL (11.27-16.99) 03/22/23 15:54 Hct 42.3 % (37-53) 03/22/23 15:54 MCV 95.9 fl (82-101) 03/22/23 15:54 MCH 32.9 pg (27-33) 03/22/23 15:54 MCHC 34.3 g/dL (30-55) 03/22/23 15:54 RDW 12.3 % (12.1-15.1) 03/22/23 15:54 Plt Count 159 10^3/cmm (157-399) 03/22/23 15:54 MPV 10.6 fL (7.4-10.4) H 03/22/23 15:54 Neut % (Auto) 66.9 % 03/22/23 15:54 Lymph % (Auto) 22.1 % 03/22/23 15:54 [place] % (Auto) 8.1 % 03/22/23 15:54 Eos % (Auto) 1.7 % 03/22/23 15:54 Baso % (Auto) 0.6 % 03/22/23 15:54 Neut # (Auto) 3.49 10^3/uL (1.8-7.7) 03/22/23 15:54 Lymph # (Auto) 1.2 10^3/uL (0.8-4.8) 03/22/23 15:54 [place] # (Auto) 0.4 10^3/uL (0.2-0.9) 03/22/23 15:54 Eos # (Auto) 0.1 10^3/uL (0.0-0.8) 03/22/23 15:54 Baso # (Auto) 0.0 10^3/uL (0.0-0.1) 03/22/23 15:54 Nucleated RBC % (auto) 0 % 03/22/23 15:54 Nucleated RBCs # 0.0 /100WBC 03/22/23 15:54 PT 14.00 SECONDS (12.1-14.9) 03/22/23 15:54 INR 1.05 (0.8-1.2) 03/22/23 15:54 APTT 26.9 SECONDS (23.9-36.7) 03/22/23 15:54 Sodium 135 mmol/L (136-145) L 03/22/23 15:54 Potassium 4.5 mmol/L (3.5-5.1) 03/22/23 15:54 Chloride 99 mmol/L (98-107) 03/22/23 15:54 Carbon Dioxide 24 mmol/L (22-29) 03/22/23 15:54 Anion Gap 16.5 (5-19) 03/22/23 15:54 BUN 23 mg/dL (6-20) H 03/22/23 15:54 Creatinine 0.6 mg/dL (0.7-1.2) L 03/22/23 15:54 GFR Calculation 143.2 mL/min (90-130) H 03/22/23 15:54 Glucose 132 mg/dL (65-115) H 03/22/23 15:54 Calculated Osmolality 286 mOsm/kg (285-295) 03/22/23 15:54 Calcium 9.6 mg/dL (8.5-10.5) 03/22/23 15:54 Total Bilirubin 0.8 mg/dL (0.15-1.2) 03/22/23 15:54 AST 103 U/L (0-40) H 03/22/23 15:54 ALT 139 U/L (0-41) H 03/22/23 15:54 Alkaline Phosphatase 99 U/L (40-130) 03/22/23 15:54 Troponin T Baseline 13 ng/L (0-15) 03/22/23 15:54 Total Protein 7.6 g/dL (6.6-8.7) 03/22/23 15:54 Albumin 4.4 g/dL (3.5-5.2) 03/22/23 15:54 Globulin 3.2 g/dL (1.3-4.6) 03/22/23 15:54 All radiology interpretation(s) finalized by discharge EKG Data EKG 1: Interpretation: Twelve-lead EKG obtained at 1522 and reviewed at 1522 shows atrial flutter with rapid ventricular response at a ventricular rate of 132, QRS duration 102, QT 288, QTc 366 there is a incomplete right bundle branch block noted. There is no ST elevation or depression to indicate acute ischemia or infarction at present. Critical Care Time 2 Critical Care Time: Critical Care Time: Yes Total Critical Care Time: 60 Attestation: This case had a high probability of a clinically significant, sudden, or life threatening deterioration of this patient's condition which required my full and direct attention, intervention and personal management. Discharge Plan Discharge Patient Disposition: Admitted As Inpatient Clinical Impression: Atrial fibrillation with rapid ventricular response, Alcohol use disorder Condition: Stable Prescriptions: No Action escitalopram oxalate [Lexapro] 10 mg tablet 20 mg PO DAILY olmesartan 40 mg tablet 40 mg PO DAILY aspirin 325 mg capsule 325 mg PO DAILY Qty: 30 0RF tramadol 50 mg tablet 50 mg PO Q4H PRN (Reason: Pain) cyclobenzaprine 10 mg tablet 10 mg PO BID PRN (Reason: Spasms) triamterene-hydrochlorothiazid 37.5-25 mg tablet 1 tab PO DAILY alprazolam 1 mg tablet 1 mg PO TID metoprolol tartrate 25 mg tablet 25 mg PO BID 30 Days Qty: 60 0RF gabapentin 300 mg capsule 300 mg PO QID PRN Referrals: Barrios,Dawn, ROASTERMAN [Primary Care Provider] - Coding Level of Care Code ED Profile Mill Operator Tape Control for Tess Sanchez
[2023-03-22] MEDS: dilTIAZem 5 mg/mL SDV 5 mL 20 MG IVP (15:58)
[2023-03-22 16:08] LABS: Basophils % 0.6 %; Eosinophils # 0.1 10^3/uL (0.0-0.8); Eosinophils % 1.7 %; Hematocrit 42.3 % (37-53); Lymphocytes # 1.2 10^3/uL (0.8-4.8); Lymphocytes % 22.1 %; Mean Corpuscular HGB Conc 34.3 g/dL (30-55); Mean Corpuscular Hemoglobin 32.9 pg (27-33); Mean Corpuscular Volume 95.9 fl (82-101); Mean Platelet Volume 10.6 fL (7.4-10.4); Monocytes # 0.4 10^3/uL (0.2-0.9); Monocytes % 8.1 %; Neutrophils # 3.49 10^3/uL (1.8-7.7); Neutrophils % 66.9 %; Nucleated Red Blood Cells % 0 %; Platelet Count 159 10^3/cmm (157-399); Red Blood Count 4.41 10^6/uL (3.85-5.65); Red Cell Distribution Width 12.3 % (12.1-15.1); White Blood Count 5.21 10^3/uL (3.29-11.43)
[2023-03-22] MEDS: dilTIAZem 100 MG in sodium chloride 0.9% (add-van) 100 ML IV (16:15)
[2023-03-22 16:17] LABS: INR 1.05 (0.8-1.2)
[2023-03-22 16:18] LABS: Partial Thromboplastin Time 26.9 SECONDS (23.9-36.7)
[2023-03-22 16:25] LABS: Troponin(5th) Baseline 13 ng/L (0-15)
[2023-03-22 16:26] LABS: Alanine Aminotransferase 139 U/L (0-41); Albumin Level 4.4 g/dL (3.5-5.2); Alkaline Phosphatase 99 U/L (40-130); Aspartate Amino Transferase 103 U/L (0-40); Blood Urea Nitrogen 23 mg/dL (6-20); Calcium 9.6 mg/dL (8.5-10.5); Carbon Dioxide 24 mmol/L (22-29); Chloride 99 mmol/L (98-107); Globulin 3.2 g/dL (1.3-4.6); Glomerular Filtration Rate 143.2 mL/min (90-130); Glucose 132 mg/dL (65-115); Osmolality Calculated 286 mOsm/kg (285-295); Sodium 135 mmol/L (136-145); Total Bilirubin 0.8 mg/dL (0.15-1.2); Total Protein 7.6 g/dL (6.6-8.7)
[2023-03-22 16:30] LABS: Anion Gap 16.5 (5-19); Potassium 4.5 mmol/L (3.5-5.1)
[2023-03-22 17:05] LABS: NT Pro B Type Natriuretic Pept 539 pg/mL (0-125)
--- NOTE | 2023-03-22 17:37 | PM.HP ---
Providers/Chief Complaint Primary Care Provider: Dawn Barrios APN Chief Complaint: pa said had irregular heart rate History of Present Illness Grupo Levy is a 47 year old male with a past medical history of A-fib, history of hypertension, history of alcoholism, who presents [facility] due to shortness of breath lower extremity edema, chest pain and palpitations, he does report heavy alcoholism for the last month, drinking a pint of vodka a day, he presents to [facility] as he has been feeling more short of breath, increased lower extreme edema having chest pain and palpitations, in the emergency room he is found to have A-fib with RVR started on Cardizem drip currently heart rates are in the 90s A-fib, on 5 Cardizem, alert and awake following all commands Review of Systems Const: Denies: fever(s) Eyes: Denies: change in vision Card: Reports: chest pain, palpitations and edema Resp: Reports: dyspnea GI: Denies: abdominal pain, nausea or vomiting : Denies: flank pain Musc: Denies: neck pain Neuro: Denies: headache(s), numbness in extremities or weakness in extremities Endo: Denies: polyuria Medications/Allergies Home Medications Medication Instructions Recorded Confirmed Last Taken Type escitalopram oxalate 10 mg tablet 20 mg PO DAILY 12/05/20 03/31/22 Unknown History (Lexapro) aspirin 325 mg capsule 325 mg PO DAILY #30 caps 02/15/22 03/31/22 Unknown Rx alprazolam 1 mg tablet 1 mg PO TID 03/26/22 03/31/22 Unknown History cyclobenzaprine 10 mg tablet 10 mg PO BID PRN Spasms 03/26/22 03/31/22 Unknown History metoprolol tartrate 25 mg tablet 25 mg PO BID 30 days #60 tabs 03/26/22 03/31/22 Unknown Rx tramadol 50 mg tablet 50 mg PO Q4H PRN Pain 03/26/22 03/31/22 Unknown History triamterene 37.5 1 tab PO DAILY 03/26/22 03/31/22 Unknown History mg-hydrochlorothiazide 25 mg tablet gabapentin 300 mg capsule 300 mg PO QID PRN 03/31/22 03/31/22 Unknown History olmesartan 40 mg tablet 40 mg PO DAILY 03/31/22 03/31/22 Unknown History Allergies Allergy/AdvReac Type Severity Reaction Status Date / Time No Known Allergies Allergy Verified 03/22/23 15:26 PFSH Acute PFSH: Medical History Afib Periodic heart flutter Hypertension Neuropathy No pertinent family history Surgical History History of hand surgery left hand No pertinent past surgical history Family History Grandfather Heart disease Grandmother Dementia Other Hypertension Denies family history of Diabetes CAD (coronary artery disease) Clotting disorder Hyperlipidemia Psychiatric illness Chronic kidney disease (CKD) Anesthesia complication Bleeding disorder Lung disease Cancer Stroke Social History Smoking and tobacco/nicotine status: current every day tobacco/nicotine user e-cigarettes E-Cigarette Details: e-cigarette E-cig/vape details: Hx 15PY tobacco use, quit 8yrs ago Alcohol intake: current Alcohol type: hard liquor Substance/Drug Use: former Lives independently: Yes Household members: family Marital status: Number of children: 2 Current occupational status: employed 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 Current gender identity: Male Agree to transfusion: Yes Vitals/I&O/Wt Last Vital Signs Temp 98.0 F 03/22/23 15:26 Pulse 133 H 03/22/23 15:26 Resp 16 03/22/23 15:26 BP 155/98 03/22/23 15:26 Pulse Ox 95 03/22/23 15:26 O2 Del Method Room Air 03/22/23 15:26 Weight last 48 hrs Weight 158.757 kg Physical Exam Const: COMMON NORMALS: no acute distress and patient oriented x3 HENMT: COMMON NORMALS: normocephalic HEAD & SCALP: normocephalic Eye: COMMON NORMALS: Equal, round and reactive pupils present and EOMs intact bilaterally Neck/C-Spine: COMMON NORMALS: no JVD Lymph: LYMPHATIC: no lymphadenopathy noted Resp: COMMON NORMALS: normal respiratory effort, No retractions, No use of accessory muscles and clear to auscultation bilaterally AUSCULTATION: clear to auscultation bilaterally Cardio: COMMON NORMALS: no JVD, regular rate, regular rhythm, S1 normal heart sound present and S2 normal heart sound present RATE: tachycardic RHYTHM: abnormal rhythm HEART SOUNDS: S1 normal heart sound present and S2 normal heart sound present GI: COMMON NORMALS: Normal to inspection, nondistended, normoactive bowel sounds present, Soft to palpation, non-tender, No hepatosplenomegaly present, no masses and no bruits PALPATION: Yes Soft to palpation and Yes No hepatosplenomegaly present Extremity: COMMON NORMALS: capillary refill normal, no clubbing, cyanosis or edema and no calf tenderness NARRATIVE EXTREMITY EXAM: 2+ pitting edema Neuro: COMMON NORMALS: patient oriented x3, CN's II-XII intact bilaterally, moves all extremities and no focal motor deficits Psych: COMMON NORMALS: mental status grossly normal Data 03/22/23 15:54 03/22/23 15:54 A&P Assessment and plan (1) Alcohol use disorder: (2) Atrial fibrillation with rapid ventricular response: (3) Obstructive sleep apnea: (4) Current every day vaping: (5) BMI 45.0-49.9, adult: (6) Moderate major depression: (7) Anxiety: (8) Fluid overload: (9) Chest pain: Plan A-fib with RVR, ? Continue Cardizem drip, start p.o. Cardizem 30 every 6 hours -continue metoprolol 25 twice daily -aspirin 325 for -Silas Vasc score is 1 Fluid overload, ? Lasix 40 mg once -will order chest x-ray Severe alcoholism, -last alcohol drink was 24 hours ago, ? Monitor CIWA protocol for severe alcohol withdrawals started on Librium Transaminitis, likely second alcoholism Chest pain ? Serial EKGs on serial troponins, telemetry monitoring, cardiac echo ? Aspirin, statin MELBA on CPAP Full code Lovenox for DVT prophylaxis Attestations Medical Necessity Statement*: This is a 47-year-old male who requires inpatient admission, for A-fib with RVR, severe alcoholism, concerns for alcohol withdrawal, fluid overload, lower extreme edema requiring diuresis Diagnoses Alcohol use disorder F10.90 Atrial fibrillation with rapid ventricular response I48.91 Obstructive sleep apnea G47.33 Current every day vaping Z72.89 BMI 45.0-49.9, adult Z68.42 Moderate major depression F32.1 Anxiety F41.9 Fluid overload E87.70 Chest pain R07.9
--- NOTE | 2023-03-22 17:47 | XRR_ITS ---
PROCEDURE INFORMATION: Exam: XR Chest Exam date and time: 03/22/2023 6:37 PM Age: 47 years old Clinical indication: Shortness of breath; Patient HX: C/O palpitations and SOB. History of afib. TECHNIQUE: Imaging protocol: Radiologic exam of the chest. Views: 1 view. COMPARISON: CR XR chest 1V portable [id number] 10/09/2022 2:51 PM FINDINGS: Lungs: Unremarkable. No consolidation. Pleural spaces: Unremarkable. No pleural effusion. No pneumothorax. Heart/Mediastinum: Unremarkable. No cardiomegaly. Bones/joints: Unremarkable. XR/XR chest 1V portable [id number] IMPRESSION: No acute findings.
--- NOTE | 2023-03-22 17:47 | CTR_ITS ---
PROCEDURE INFORMATION: Exam: CT Head Without Contrast Exam date and time: 03/22/2023 5:53 PM Age: 47 years old Clinical indication: Patient HX: C/O dizziness; Additional info: AMS TECHNIQUE: Imaging protocol: Computed tomography of the head without contrast. Radiation optimization: All CT scans at this facility use at least one of these dose optimization techniques: automated exposure control; mA and/or kV adjustment per patient size (includes targeted exams where dose is matched to clinical indication); or iterative reconstruction. REPORTING DATA: Count of CT and Cardiac NM exams in prior 12 months: This patient has received 2 known CTs and 0 known cardiac nuclear medicine studies in the 12 months prior to the current study. COMPARISON: CT head wo con* [id number] 07/10/2022 6:23 PM RADIATION DOSE METRICS: Total DLP (mGy-cm): 1139.28 FINDINGS: Brain: No hemorrhage. No edema. Moderate diffuse cerebral atrophy. No significant white matter disease. No mass effect. Cerebral ventricles: No ventriculomegaly. Paranasal sinuses: Visualized sinuses are unremarkable. No fluid levels. Mastoid air cells: Visualized mastoid air cells are well aerated. Bones/joints: Unremarkable. No acute fracture. Soft tissues: Unremarkable. CT/CT head wo con* [id number] IMPRESSION: No acute intracranial abnormality.
[2023-03-22 17:53] LABS: Magnesium 1.7 mg/dL (1.7-2.3); Thyroid Stimulating Hormone 0.64 uIU/mL (0.27-4.20)
[2023-03-22 17:54] LABS: Alcohol Level < 10 mg/dL (0-10)
[2023-03-22 19:05] LABS: NT Pro B Type Natriuretic Pept 553 pg/mL (0-125)
--- NOTE | 2023-03-22 19:27 | ECG_ITS ---
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 Measurements Intervals [place] Rate: 100 P: 0 UT: 0 QRS: 43 QRSD: 100 T: 43 QT: 364 QTc: 470 Interpretive Statements Sinus rhythm with frequent atrial ectopy POSSIBLE RIGHT VENTRICULAR CONDUCTION DELAY [RSR (QR) IN V1/V2] ABNORMAL RHYTHM ECG Compared to ECG 03/22/2023 15:22:27 ST (T wave) deviation no longer present Electronically Signed On 03-23-2023 15:58:32 INFORMATION COORDINATOR by Jarod Rush M.D. [email or web address] [id number]
[2023-03-22 20:07] LABS: Add Urine Microscopic? NO; Charge for UA Resulting for Rev
[2023-03-22 20:10] LABS: Bilirubin Urine Neg (Negative); Blood Urine Neg (Negative); Glucose Urine UA Norm (Normal); Ketones Urine Negative (Negative); Leukocyte Esterase Urine Negative (Negative); Nitrate Urine Negative (Negative); Protein Urine Neg (Negative); Specific Gravity, Urine 1.015 (1.005-1.030); Urine Appearance Clear (CLEAR); Urine Color Yellow (Yellow); Urobilinogen Urine Norm (Negative); pH Urine 5 (5-7)
[2023-03-22 20:18] LABS: Troponin 5 2HR 10.82 ng/L (0-15); Troponin 5 2HR Delta -2.18 ABS# (0-10)
[2023-03-22 20:19] LABS: Amphetamines Screen Urine Negative (Negative); Barbiturates Screen Urine Negative (Negative); Benzodiazepines Screen Urine Positive (Negative); Cocaine Screen Urine Negative (Negative); Opiate Screen Urine Negative (Negative); PCP Screen Urine Negative (Negative); THC Screen Urine Negative (Negative)
[2023-03-22] MEDS: dilTIAZem 30 mg Tablet PO (20:54)
[2023-03-22] MEDS: metoprolol tartrate 25 mg Tablet PO (20:54)
[2023-03-22] MEDS: pantoprazole 40 mg SDV IVP (20:55)
[2023-03-22] MEDS: atorvastatin 40 mg Tablet PO (20:59)
[2023-03-22] MEDS: chlordiazePOXIDE 25 mg Capsule PO (20:59)
[2023-03-22] MEDS: enoxaparin 40 mg/0.4 mL Syringe SUBCUT (21:07)
[2023-03-22] MEDS: FUROsemide 10 mg/mL SDV 4mL 40 MG IVP (21:08)
--- NOTE | 2023-03-22 21:25 | ECG_ITS ---
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 Measurements Intervals [place] Rate: 75 P: 38 TX: 199 QRS: -2 QRSD: 105 T: 31 QT: 375 QTc: 421 Interpretive Statements SINUS RHYTHM Compared to ECG 03/22/2023 19:27:32 Atrial fibrillation no longer present Electronically Signed On 03-23-2023 15:58:40 DIRECTOR OF CASINO by Jarod Rush M.D. [email or web address] [email or web address] memorial hospitalReCyte [email or web address] medical [email or web address]/store/[id number]
[2023-03-22 22:48] LABS: Troponin 5 6HR 9.22 ng/L (0-15); Troponin 5 6HR Delta -3.78 ng/L (0-12)
--- NOTE | 2023-03-22 23:19 | PC.NURSE ---
Spoke with regarding patients hr sustaining in 140s, maxed on cardizem gtt at 15mg/hr and received PO cardizem 30mg and PO metoprolol 25mg at 20:54 but hr is still elevated. intially gave order for IV digoxin but after order was received pts HR dropped between 70-100s, made Javier aware and he said do not give dig at this time. MAde aware of IV bannana bag was not administered because no one in pharmacy to mix it at night. said ok to wait to administer it tomorrow when pharmacy available. Made Dr Broussard aware of pt recentlty diagnosed with diabetes, ok to order patients metformin and Accuchecks.
[2023-03-23] VITALS (19 sets, daily range): BP systolic 112–172; BP diastolic 55–103; PULSE 61–105; RESP 15–31; TEMP 36.4–37.1; O2SAT 91–96
[2023-03-23] MEDS: ALPRAZolam 0.5 mg Tablet 1 MG PO ×3 (01:48→19:11)
[2023-03-23] MEDS: dilTIAZem 100 MG in sodium chloride 0.9% (add-van) 100 ML 10 MG IV (01:49)
[2023-03-23] MEDS: dilTIAZem 30 mg Tablet PO ×2 (02:04→08:52)
[2023-03-23] MEDS: chlordiazePOXIDE 25 mg Capsule PO ×4 (02:04→21:27)
[2023-03-23 05:29] LABS: Basophils % 0.7 %; Eosinophils # 0.1 10^3/uL (0.0-0.8); Eosinophils % 2.5 %; Hematocrit 43.3 % (37-53); Lymphocytes # 1.6 10^3/uL (0.8-4.8); Lymphocytes % 28.8 %; Mean Corpuscular HGB Conc 34.2 g/dL (30-55); Mean Corpuscular Hemoglobin 33.6 pg (27-33); Mean Corpuscular Volume 98.4 fl (82-101); Mean Platelet Volume 10.6 fL (7.4-10.4); Monocytes # 0.6 10^3/uL (0.2-0.9); Monocytes % 9.9 %; Neutrophils # 3.19 10^3/uL (1.8-7.7); Neutrophils % 57.7 %; Nucleated Red Blood Cells % 0 %; Platelet Count 163 10^3/cmm (157-399); Red Cell Distribution Width 12.5 % (12.1-15.1); White Blood Count 5.53 10^3/uL (3.29-11.43)
[2023-03-23 05:33] LABS: Glucose Point of Care 112 mg/dL (70-110)
[2023-03-23 05:53] LABS: Alanine Aminotransferase 123 U/L (0-41); Albumin Level 4.2 g/dL (3.5-5.2); Alkaline Phosphatase 93 U/L (40-130); Anion Gap 17.8 (5-19); Aspartate Amino Transferase 75 U/L (0-40); Blood Urea Nitrogen 23 mg/dL (6-20); Calcium 9.3 mg/dL (8.5-10.5); Carbon Dioxide 27 mmol/L (22-29); Chloride 98 mmol/L (98-107); Globulin 3.4 g/dL (1.3-4.6); Glomerular Filtration Rate 89.7 mL/min (90-130); Glucose 107 mg/dL (65-115); Magnesium 1.5 mg/dL (1.7-2.3); Osmolality Calculated 292 mOsm/kg (285-295); Phosphorus 3.5 mg/dL (2.5-4.5); Potassium 3.8 mmol/L (3.5-5.1); Sodium 139 mmol/L (136-145); Total Bilirubin 0.8 mg/dL (0.15-1.2); Total Protein 7.6 g/dL (6.6-8.7)
--- NOTE | 2023-03-23 06:00 | USCV_ITS ---
Grupo Levy Age: 47 Gender: M : 1975 Exam Date: 03/23/2023 08:03 Ordering Phys: Derek Millan MD Technologist: Beto Pop Exam Location: [facility] [place] Indication: chest pain BP: 129 / 83 HR: 60 Rhythm: Sinus Technical Quality: Adequate MEASUREMENTS (Male / Female) Normal Values 2D ECHO LV Diastolic Diameter PLAX 4.6 cm 4.2 - 5.9 / 3.9 - 5.3 cm LV Systolic Diameter PLAX 3.7 cm IVS Diastolic Thickness 1.3 cm 0.6 - 1.0 / 0.6 - 0.9 cm IVS Systolic Thickness 2.1 cm LVPW Diastolic Thickness 1.3 cm 0.6 - 1.0 / 0.6 - 0.9 cm LVPW Systolic Thickness 2.0 cm LVOT Diameter 2.0 cm LV Ejection Fraction 2D Teich 27.9 % LV Ejection Fraction MOD 2C 62.6 % LV Ejection Fraction 2C AL 63.8 % LA Diameter 4.1 cm IVC Diameter 1.8 cm M-MODE Aortic Annulus Diameter 4.0 cm LA Ao Ratio MM 1.2 MV E Point Septal Separation 1.0 cm DOPPLER AV Peak Velocity 162.0 cm/s LVOT Peak Velocity 103.0 cm/s AV Area Cont Eq vti 2.4 cm squared AV Area Cont Eq pk 2.0 cm squared MV Area PHT 2.4 cm squared Mitral E to A Ratio 1.5 MV E' Velocity 80.0 cm/s Mitral E to LV E' Septal Ratio 8.3 TR Peak Velocity 172.0 cm/s TR Peak Gradient 11.8 mmHg TV Peak E Velocity 88.0 cm/s Right Atrial Pressure 3.0 mmHg Pulmonary Artery Systolic Pressu 14.8 mmHg RV Acceleration Time 0.2 s FINDINGS Left Ventricle Left ventricle is normal in size. LV systolic function is normal with EF of 55 to 60%. No regional wall motion abnormalities are seen. Right Ventricle Normal in size and function Right Atrium Normal in size Left Atrium Normal in size Mitral Valve Structurally normal mitral valve. Trace mitral regurgitation. Aortic Valve Structurally normal aortic valve. No significant stenosis or regurgitation seen. Tricuspid Valve Mild tricuspid regurgitation. Insufficient TR jet to collect RVSP. Pulmonic Valve Not well visualized Pericardium Normal Aorta Normal in size IVC Appears to be normal CONCLUSIONS LV systolic function is normal with EF of 55 to 60%. Trace mitral regurgitation Mild tricuspid regurgitation Compared to prior echocardiogram from 2021, no significant changes are seen. Rakesh Rapp MD (Electronically Signed) Final Date: 23 March 2023 09:39 S
[2023-03-23] MEDS: folic acid 1 MG, multivitamin inj 10 ML, thiamine 100 MG in sodium chloride 0.9% 1,000 ML 252.8 MG IV (08:15)
[2023-03-23] MEDS: metoprolol tartrate 25 mg Tablet PO ×2 (08:52→19:11)
[2023-03-23] MEDS: folic acid 1 mg Tablet PO (08:52)
[2023-03-23] MEDS: multivitamin therapeutic Tablet 1 TAB PO (08:53)
[2023-03-23] MEDS: aspirin 325 mg Tablet PO (08:53)
[2023-03-23] MEDS: thiamine 100 mg Tablet PO (08:53)
[2023-03-23] MEDS: cyclobenzaprine 10 mg Tablet PO ×2 (10:01→19:11)
[2023-03-23] MEDS: magnesium sulfate premix 4 GM/100 ML PREMIX IV (10:05)
[2023-03-23] MEDS: TRAMadol 50 mg Tablet PO (10:11)
[2023-03-23] MEDS: gabapentin 300 mg Capsule PO (10:12)
[2023-03-23 11:16] LABS: Chol HDL Ratio 6.45 mg/dL (1.0-5.00); Cholesterol 329 mg/dL (0-200); HDL Cholesterol 51 mg/dL (60-100); LDL Cholesterol Calculated 201 mg/dL (50-129); LDL HDL Ratio 3.94 RATIO (0.00-3.22); Triglycerides 386 mg/dL (0-150)
[2023-03-23 12:27] LABS: Glucose Point of Care 97 mg/dL (70-110)
[2023-03-23] MEDS: escitalopram 10 mg Tablet 20 MG PO (12:58)
--- NOTE | 2023-03-23 16:46 | P.CONIM_ITS ---
Providers/Reason For Consult 2 Consulting Physician/Specialty*: Rakesh Rapp MD/ Cardiology Reason for Consult*: Afib with RVR Requesting Physician: Dr Lovell Attending Physician: Mae Lovell MD Primary Care Provider: Dawn Barrios APN History of Present Illness History of Present Illness Grupo Levy is a 47 year old male with prior history of atrial fibrillation, hypertension who presented to hospital with shortness of breath, palpitations and lower extremity edema for 1 to 2 days. He was using heavy alcohol. Denies significant chest pain. Was found with A-fib with RVR. He was given Cardizem and converted back to normal sinus rhythm. His blood pressure is controlled. Echo showed normal LV systolic function. He has obstructive sleep apnea and does not use CPAP. He has history of tobacco abuse. Drinks more than a gallon of tea every day. Review of Systems 2 Const: Denies: fever(s) Eyes: Denies: change in vision Card: Reports: chest pain, palpitations and edema Resp: Reports: dyspnea GI: Denies: abdominal pain, nausea or vomiting : Denies: flank pain Musc: Denies: neck pain Neuro: Denies: headache(s), numbness in extremities or weakness in extremities Endo: Denies: polyuria Medications/Allergies Home Medications Medication Instructions Recorded Confirmed Last Taken Type escitalopram oxalate 10 mg tablet 20 mg PO DAILY 12/05/20 03/22/23 03/22/23 History (Lexapro) aspirin 325 mg capsule 325 mg PO DAILY #30 caps 02/15/22 03/22/23 03/22/23 Rx alprazolam 1 mg tablet 1 mg PO TID PRN Anxiety 03/26/22 03/22/23 Unknown History cyclobenzaprine 10 mg tablet 10 mg PO BID PRN Spasms 03/26/22 03/22/23 Unknown History metoprolol tartrate 25 mg tablet 25 mg PO BID 30 days #60 tabs 03/26/22 03/22/23 03/22/23 Rx tramadol 50 mg tablet 50 mg PO Q4H PRN Pain 03/26/22 03/22/23 Unknown History triamterene 37.5 1 tab PO DAILY 03/26/22 03/22/23 03/22/23 History mg-hydrochlorothiazide 25 mg tablet gabapentin 300 mg capsule 300 mg PO QID PRN Pain 03/31/22 03/22/23 Unknown History olmesartan 40 mg tablet 40 mg PO DAILY 03/31/22 03/22/23 03/22/23 History diltiazem HCl 120 mg 120 mg PO DAILY 03/22/23 03/22/23 03/22/23 09:00 History capsule,extended release 24 hr metformin 500 mg tablet,extended 500 mg PO DAILY 03/22/23 03/22/23 Unknown History release 24 hr blood sugar diagnostic (Accu-Chek 03/23/23 03/23/23 Unknown History Guide test strips) blood-glucose meter (Accu-Chek 03/23/23 03/23/23 Unknown History Guide Glucose Meter) lancets (Accu-Chek Softclix 03/23/23 03/23/23 Unknown History Lancets) Allergies Allergy/AdvReac Type Severity Reaction Status Date / Time No Known Allergies Allergy Verified 03/22/23 15:26 Current Medications Generic Name Dose Route Start Last Admin Trade Name Freq PRN Reason Stop Dose Admin Alprazolam 1 mg 03/22/23 21:27 03/23/23 10:01 Alprazolam 0.5 Mg Tablet PO 1 mg TID PRN Administration ANXIETY Aspirin 325 mg 03/23/23 09:00 03/23/23 08:53 Aspirin 325 Mg Tablet PO 325 mg DAILY SHALONDA Administration Atorvastatin Calcium 40 mg 03/22/23 21:00 03/22/23 20:59 Atorvastatin 40 Mg Tablet PO 40 mg BEDTIME SHALONDA Administration Chlordiazepoxide 25 mg 03/22/23 21:00 03/23/23 15:42 Chlordiazepoxide 25 Mg Capsule PO 25 mg Q6H SHALONDA Administration Cyclobenzaprine HCl 10 mg 03/22/23 21:29 03/23/23 10:01 Cyclobenzaprine 10 Mg Tablet PO 10 mg BID PRN Administration MUSCLE SPASMS Diltiazem HCl 30 mg 03/22/23 21:00 03/23/23 08:52 Diltiazem 30 Mg Tablet PO 30 mg Q6H SHALONDA Administration Diltiazem HCl 120 mg 03/23/23 13:00 03/23/23 12:53 Diltiazem Er (24hr) 120 Mg Capsule PO Not Given DAILY [facility] Enoxaparin Sodium 40 mg 03/22/23 21:00 03/22/23 21:07 Enoxaparin 40 Mg/0.4 Ml Syringe SUBCUT 40 mg Q24H SHALONDA Administration Escitalopram Oxalate 20 mg 03/23/23 12:08 03/23/23 12:58 Escitalopram 10 Mg Tablet PO 20 mg DAILY SHALONDA Administration Folic Acid 1 mg 03/23/23 09:00 03/23/23 08:52 Folic Acid 1 Mg Tablet PO 1 mg DAILY SHALONDA Administration Gabapentin 300 mg 03/22/23 21:30 03/23/23 10:12 Gabapentin 300 Mg Capsule PO 300 mg QID PRN Administration PAIN Diltiazem HCl 100 mg/ Sodium 100 mls @ 0 mls/hr 03/22/23 16:15 03/23/23 06:18 Chloride IV Infused .Q0M SHALONDA Titration Protocol Per Protocol Insulin Human Lispro 0 unit 03/23/23 08:00 03/23/23 13:02 Insulin Lispro 100 Unit/1 Ml SUBCUT Not Given TIDWM [facility] Protocol Multivitamins Therapeutic 1 tab 03/23/23 09:00 03/23/23 08:53 Multivitamin Therapeutic Tablet PO 1 tab DAILY SHALONDA Administration Pantoprazole Sodium 40 mg 03/22/23 21:00 03/22/23 20:55 Pantoprazole 40 Mg Sdv IVP 40 mg Q24H SHALONDA Administration Thiamine Mononitrate 100 mg 03/23/23 09:00 03/23/23 08:53 Thiamine 100 Mg Tablet PO 100 mg DAILY SHALONDA Administration Tramadol HCl 50 mg 03/22/23 21:28 03/23/23 10:11 Tramadol 50 Mg Tablet PO 50 mg Q4H PRN Administration MODERATE PAIN PFSH Acute 2 PFSH: Medical History Afib Periodic heart flutter Hypertension Neuropathy No pertinent family history Surgical History History of hand surgery left hand No pertinent past surgical history Family History Grandfather Heart disease Grandmother Dementia Other Hypertension Denies family history of Diabetes CAD (coronary artery disease) Clotting disorder Hyperlipidemia Psychiatric illness Chronic kidney disease (CKD) Anesthesia complication Bleeding disorder Lung disease Cancer Stroke Social History (Reviewed 03/24/23 @ 08:30 by Justen Bowens Smoking and tobacco/nicotine status: current every day tobacco/nicotine user e- cigarettes E-Cigarette Details: e-cigarette E-cig/vape details: Hx 15PY tobacco use, quit 8yrs ago Alcohol intake: current Alcohol type: hard liquor Substance/Drug Use: former Lives independently: Yes Household members: family Marital status: Number of children: 2 Current occupational status: employed 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 [] NECK: No jugular vein distension. [] HEENT: No cyanosis. No icterus. No pallor. [] HEART: Regular S1 and S2. No murmur, rub or gallop. [] LUNGS: Clear to auscultate bilaterally. [] CENTRAL NERVOUS SYSTEM: Grossly nonfocal. [] EXTREMITIES: Lower extremities with no edema Data 03/23/23 04:49 03/23/23 04:49 A&P Assessment and plan (1) Atrial fibrillation with rapid ventricular response: (2) Alcohol use disorder: (3) Obstructive sleep apnea: (4) Current every day vaping: (5) Hypertension: Qualifiers: Hypertension type: primary hypertension Qualified Code(s): I10 - Essential (primary) hypertension Plan Patient has presented with A-fib with RVR. His [id number] score is 1. Continue aspirin 325 mg daily. He is currently in normal sinus rhythm. Continue current doses of metoprolol and Cardizem. He is A-fib with RVR episode likely related to lifestyle. He has heavy alcohol use, obstructive sleep apnea not using CPAP., Heavy caffeine intake with more than a gallon of tea every day, obesity and lack of exercise. I had a detailed discussion regarding up with these factors. Echo shows normal LV systolic function. Thank you for involving us with care of this patient. Please call with questions. He will need close follow-up with cardiology as outpatient. Consult Attestations 2 Medical Necessity Statement: Care expected to cross 2 midnights Coding Level of Care Code Acute Code for Chg Fwd Diagnoses Atrial fibrillation with rapid ventricular response I48.91 Alcohol use disorder F10.90 Obstructive sleep apnea G47.33 Current every day vaping Z72.89 Primary hypertension I10 Hypertension type: primary hypertension
[2023-03-23 17:16] LABS: Glucose Point of Care 130 mg/dL (70-110)
--- NOTE | 2023-03-23 17:30 | PC.NURSE ---
173- gate agent came and talk to pt. per dr quintana on cardiac standpoint he can go home if pt wants to go home. informed pt and at bedside that hospitalist will be the one to make decision when to discharge him. notified hospitalist that pt would like to go home tonight. hospitalist replied back that she won't be able to discharge him tonight but will do it in the morning. notified pt and he said, he does not have a ride tomorrow until 6 pm coz his is working tomorrow. i ask him if he wants us to get him a transportation tomorrow instead w/ case mgt on board. pt would like to go home. informed night nurse rachel and we will try to get a hold with night doctor.
[2023-03-23] MEDS: enoxaparin 40 mg/0.4 mL Syringe SUBCUT (20:48)
[2023-03-23] MEDS: pantoprazole 40 mg SDV IVP (20:48)
[2023-03-23] MEDS: atorvastatin 40 mg Tablet PO (21:27)
--- NOTE | 2023-03-23 21:28 | PC.NURSE ---
Patient very upset he is not being discharged this evening. At this time the provider has not put in any progress notes about patient so public relations officer was unable to discharge patient overnight. Patient is refusing all lab draws and request his IV be taken out and that he be unhooked from the monitor. Also requested allergy band be removed. I told patient I would like hiim to keep his ID bracelet on so that we are making sure we are giving the patient the correct medications and patient agreed.
[2023-03-23 21:30] LABS: Glucose Point of Care 103 mg/dL (70-110)
--- NOTE | 2023-03-23 22:25 | PM.PN ---
Subjective Subjective: Overnight, the patient converted to NSR at 3 AM while on Cardizem drip as well as 30 mg p.o. every hrs. The patient's was in the room, when the patient was seen. She voiced her concern with the patient's alcohol intake. Options such as alcoholic Anonymous was discussed with the patient, and the patient said that he would stop drinking, because he had stopped drinking for 2 years before. The patient and his wanted to see a natural gas field processing supervisor. 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 Maldonado, but he never could make the appointments because anytime he had an appointment, he happened to be working out of state. He also mentions that he is on olmesartan, and that the dose was decreased, because when he drinks, he becomes dehydrated, and his BP drops, so there has been no need to constantly titrate his BP medicine of olmesartan. The patient also wanted his medications restarted, including the Flexeril, complaining that he gets muscle cramps primarily at night. At the time he was seen, he denies any dizziness, lightheadedness, shortness of breath, chest pain, palpitations, headaches, fever, chills, GI or symptoms. Vitals/I&O/Wt Last Vital Signs Temp 98.8 F 03/23/23 20:00 Pulse 83 03/23/23 20:00 Resp 20 H 03/23/23 20:00 BP 115/55 03/23/23 20:00 Pulse Ox 95 03/23/23 20:00 O2 Del Method Room Air 03/23/23 20:00 03/23/23 03/23/23 03/23/23 06:59 14:59 22:59 Intake Total 192.375 / 685.787 7075.2 / 1573.2 240 / 1813.2 Balance 192.375 / -2024.709 1573.2 / 1573.2 240 / 1813.2 Weight last 48 hrs Weight 153.314 kg Weight 158.984 kg Weight 158.757 kg Physical Exam Const: GENERAL APPEARANCE: cooperative and comfortable NUTRITIONAL APPEARANCE: obese ORIENTATION/CONSCIOUSNESS: Yes awake, Yes oriented to person, Yes oriented to place and Yes oriented to time HENMT: COMMON NORMALS: normocephalic, atraumatic and external ears normal HEAD & SCALP: normocephalic and atraumatic EXTERNAL EAR: Yes external ears normal MOUTH: Normal oral and palatal mucosa present THROAT: posterior oropharynx normal Eye: COMMON NORMALS: Equal, round and reactive pupils present and conjunctivae normal CONJUNCTIVA: Yes conjunctivae normal PUPIL: Yes Equal, round and reactive pupils present EOM: No EOM abnormal Neck/C-Spine: COMMON NORMALS: Thyroid normal GENERAL: Yes normal visual inspection and Yes trachea midline THYROID: Thyroid normal CAROTIDS: Yes other (Difficult to appreciate the carotid artery given his body habitus) Lymph: LYMPHATIC: No lymphadenopathy Resp: OTHER: CTAB, no wheezes rales or rhonchi Cardio: COMMON NORMALS: regular rate, regular rhythm, S1 normal heart sound present and S2 normal heart sound present RATE: regular rate RHYTHM: regular rhythm HEART SOUNDS: S1 normal heart sound present, S2 normal heart sound present, no click, no gallops, no murmurs and no rubs GI: OTHER: Bowel sounds positive, nontender, nondistended, no rigidity, no guarding, no rebound tenderness, or organomegaly appreciated. Extremity: GENERAL: No clubbing, No cyanosis and No edema Neuro: SENSORIUM/ORIENTATION: Yes oriented to person, Yes oriented to place and Yes oriented to time CRANIAL NERVES: Yes CN normal except as noted SENSORY EXAM: No sensory level loss detected MOTOR EXAM: 5/5 motor strength present throughout and Normal motor muscle tone present throughout Psych: COMMON NORMALS: Normal thought process present and speech normal APPEARANCE: Yes grossly normal ATTITUDE: Yes calm and Yes engaged ACTIVITY/MOTOR BEHAVIOR: Yes appropriate eye contact SPEECH: Yes normal speech MOOD & AFFECT: Yes euthymic mood THOUGHT PROCESS: Normal thought process present THOUGHT CONTENT: Yes Normal thought content present ATTENTION/CONCENTRATION: Yes attention grossly intact MEMORY/COGNITION: Yes memory grossly intact Skin: COMMON NORMALS: no rashes or lesions noted GENERAL SKIN EXAM: no rashes or lesions noted Data 03/23/23 04:49 03/23/23 04:49 A&P Assessment and plan (1) Alcohol use disorder: (2) Atrial fibrillation with rapid ventricular response: (3) BMI 45.0-49.9, adult: (4) Anxiety: (5) Hypertension: Qualifiers: Hypertension type: primary hypertension Qualified Code(s): I10 - Essential (primary) hypertension Plan Mr. Levy is a 47-year-old man with HTN, Paroxysmal A-fib, Anxiety d/o, Depression, Alcohol use d/o, Currently Vaping, and MELBA, who was admitted on 03/22/2023 for heavy alcohol use, and resultant A-fib with RVR, requiring diltiazem drip. He was placed on diltiazem 30 mg p.o. every 6, and continued on the diltiazem drip, with resulting conversion to normal sinus rhythm on the morning of 03/23/2023. His TSH was within normal limits. 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 #Afib w/RVR: d/ce 30mg q6h of p.o. Cardizem, and restart his home dose of 120 mg p.o. Cardizem in addition to his home dose of metoprolol 25 mg twice daily. The patient will likely need an increase to 240 mg p.o. of oral Cardizem given that he was on 30 mg p.o. every 6 in addition to the diltiazem drip when he converted to NSR. His TSH is within normal limits. - F/u his TTE. Consult cardiology. -Counseled patient on the association between atrial fibrillation and his alcohol use disorder # Alcohol use disorder -On folate acid/thiamine. Also on chlordiazepoxide q6h. will discharge patient with a taper. -Also counseled patient on the physiological relationship between excessive alcohol and liver cirrhosis. - - Recommended Alcoholics Anonymous. # Class III obesity: F/u lipid panel #HTN: Hold Olmesartan at this time. #Anxiety d/o, Depression: # Current vaping: Counseled him against vaping. # MELBA: I will have to question him further about this. #Muscle spasms: On Flexeril 10mg prn. check 25'OH Vitamin D. DVT ppx: Lovenox Attestations Medical Necessity Statement*: Consult cardiology, titrate patient's p.o. meds, f/u ECHO Coding Level of Care Code 02227 Diagnoses Alcohol use disorder F10.90 Atrial fibrillation with rapid ventricular response I48.91 BMI 45.0-49.9, adult Z68.42 Anxiety F41.9 Primary hypertension I10 Hypertension type: primary hypertension Time Spent (min) 51 Comment Time includes chart review, patient interview/exam, lab/image review and plan formulation.
[2023-03-24 06:00] VITALS: BMI 44.6
[2023-03-24] MEDS: chlordiazePOXIDE 25 mg Capsule PO ×2 (06:36→09:12)
[2023-03-24 07:54] VITALS: BP 115/55; PULSE 83; RESP 20; TEMP 37.1
[2023-03-24 08:00] VITALS: BP 140/83; PULSE 63; RESP 16; TEMP 36.4; O2SAT 96
--- NOTE | 2023-03-24 08:38 | P.PN_ITS ---
Subjective 2 Subjective: Patient is doing well. No chest pain or shortness of breath Vitals/I&O/Wt Last Vital Signs Temp 98.8 F 03/24/23 07:54 Pulse 83 03/24/23 07:54 Resp 20 H 03/24/23 07:54 BP 115/55 03/24/23 07:54 Pulse Ox 95 03/23/23 20:00 O2 Del Method Room Air 03/23/23 20:00 03/23/23 03/24/23 03/24/23 22:59 06:59 14:59 Intake Total 240 / 1813.2 Balance 240 / 1813.2 Weight last 48 hrs Weight 338 lb Weight 338 lb Weight 350 lb 8 oz Weight 350 lb Physical Exam 2 Narrative: GENERAL: Patient is alert, awake and oriented x3. [] NECK: No jugular vein distension. [] HEENT: No cyanosis. No icterus. No pallor. [] HEART: Regular S1 and S2. No murmur, rub or gallop. [] LUNGS: Clear to auscultate bilaterally. [] CENTRAL NERVOUS SYSTEM: Grossly nonfocal. [] EXTREMITIES: Lower extremities with no edema Data 03/23/23 04:49 03/23/23 04:49 A&P Assessment and plan (1) Atrial fibrillation with rapid ventricular response: (2) Alcohol use disorder: (3) Obstructive sleep apnea: (4) Current every day vaping: (5) Hypertension: Qualifiers: Hypertension type: primary hypertension Qualified Code(s): I10 - Essential (primary) hypertension Plan Patient staying in normal sinus rhythm. Continue aspirin 325 mg daily. Cardizem has been uptitrated. Agree with that. Continue metoprolol. Lifestyle modifications are discussed in detail. Echo shows normal LV systolic function. Thank you for involving us with care of this patient. Patient is stable to be discharged from cardiology standpoint. Please call with questions. Attestations 2 Medical Necessity Statement*: Care expected to cross 2 midnights. Coding Level of Care Code Acute Code for g Fwd Diagnoses Atrial fibrillation with rapid ventricular response I48.91 Alcohol use disorder F10.90 Obstructive sleep apnea G47.33 Current every day vaping Z72.89 Primary hypertension I10 Hypertension type: primary hypertension
[2023-03-24] MEDS: thiamine 100 mg Tablet PO (09:11)
[2023-03-24] MEDS: metoprolol tartrate 25 mg Tablet PO (09:11)
[2023-03-24] MEDS: folic acid 1 mg Tablet PO (09:11)
[2023-03-24] MEDS: dilTIAZem ER (24HR) 120 mg Capsule 240 MG PO (09:11)
[2023-03-24] MEDS: multivitamin therapeutic Tablet 1 TAB PO (09:11)
[2023-03-24] MEDS: escitalopram 10 mg Tablet 20 MG PO (09:11)
[2023-03-24] MEDS: aspirin 325 mg Tablet PO (09:12)
--- NOTE | 2023-03-24 10:17 | PM.DCS ---
Discharge Providers Date of Admission: 03/22/23 17:03 Date of Discharge: March 24, 2023 Attending Provider at Admission: Derek Millan MD Attending Provider at Discharge: Mae Lovell MD Primary Care Provider: Dawn Barrios APN Diagnoses at Discharge Discharge Diagnosis (1) Atrial fibrillation with rapid ventricular response: Status: Acute (2) Alcohol use disorder: Status: Acute (3) Obstructive sleep apnea: Status: Acute (4) Current every day vaping: Status: Acute (5) Hypertension: Status: Acute Qualifiers: Hypertension type: primary hypertension Qualified Code(s): I10 - Essential (primary) hypertension Reason for Visit Reason for Visit: julio cesar said had irregular heart rate Hospital Course Hospital Course Mr. Levy is a 47-year-old man with HTN, Paroxysmal A-fib, Anxiety d/o, Depression, Alcohol use d/o, Currently Vaping, and MELBA, who was admitted on 03/22/2023 for heavy alcohol use, and resultant A-fib with RVR, requiring diltiazem drip. He was placed on diltiazem 30 mg p.o. every 6, and continued on the diltiazem drip, with resulting conversion to normal sinus rhythm on the morning of 03/23/2023. His TSH was within normal limits. 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 Furthermore according to his , he has been hospitalized at almost every [id number] assignment that he has had this year, with A-fib with RVR, so Cardiology was consulted in-house, who saw him. He refused labs on the morning of discharge. He was discharged on 03/24/2023 with an increase on his home dose of Cardizem, from 120 mg p.o. to 240 mg p.o. He was continued on his home metoprolol tartrate dose of 25 mg p.o. twice daily. The patient was counseled both by the hospitalist and the java sybase developer against lifestyle related factors such as heavy alcohol use and his MELBA not using his CPAP, that negatively affect his A-fib. Per his request, he was discharged with a Librium taper for his alcohol use disorder. # Alcohol use disorder # Class III obesity #HTN #Anxiety d/o, Depression # Current vaping # MELBA #Muscle spasms Physical Exam Const: GENERAL APPEARANCE: cooperative and comfortable NUTRITIONAL APPEARANCE: obese ORIENTATION/CONSCIOUSNESS: Yes awake, Yes oriented to person, Yes oriented to place and Yes oriented to time HENMT: COMMON NORMALS: normocephalic, atraumatic and external ears normal HEAD & SCALP: normocephalic and atraumatic EXTERNAL EAR: Yes external ears normal MOUTH: Normal oral and palatal mucosa present THROAT: posterior oropharynx normal Eye: COMMON NORMALS: Equal, round and reactive pupils present and conjunctivae normal CONJUNCTIVA: Yes conjunctivae normal PUPIL: Yes Equal, round and reactive pupils present EOM: No EOM abnormal Neck/C-Spine: COMMON NORMALS: Thyroid normal GENERAL: Yes normal visual inspection and Yes trachea midline THYROID: Thyroid normal CAROTIDS: Yes other (Difficult to appreciate the carotid artery given his body habitus) Lymph: LYMPHATIC: No lymphadenopathy Resp: OTHER: CTAB, no wheezes rales or rhonchi Cardio: COMMON NORMALS: regular rate, regular rhythm, S1 normal heart sound present and S2 normal heart sound present RATE: regular rate RHYTHM: regular rhythm HEART SOUNDS: S1 normal heart sound present, S2 normal heart sound present, no click, no gallops, no murmurs and no rubs GI: OTHER: Bowel sounds positive, nontender, nondistended, no rigidity, no guarding, no rebound tenderness, or organomegaly appreciated. Extremity: GENERAL: No clubbing, No cyanosis and No edema Neuro: SENSORIUM/ORIENTATION: Yes oriented to person, Yes oriented to place and Yes oriented to time CRANIAL NERVES: Yes CN normal except as noted SENSORY EXAM: No sensory level loss detected MOTOR EXAM: 5/5 motor strength present throughout and Normal motor muscle tone present throughout Psych: COMMON NORMALS: Normal thought process present and speech normal APPEARANCE: Yes grossly normal ATTITUDE: Yes calm and Yes engaged ACTIVITY/MOTOR BEHAVIOR: Yes appropriate eye contact SPEECH: Yes normal speech MOOD & AFFECT: Yes euthymic mood THOUGHT PROCESS: Normal thought process present THOUGHT CONTENT: Yes Normal thought content present ATTENTION/CONCENTRATION: Yes attention grossly intact MEMORY/COGNITION: Yes memory grossly intact Skin: COMMON NORMALS: no rashes or lesions noted GENERAL SKIN EXAM: no rashes or lesions noted Discharge Data Studies Completed and Pending Completed Studies During Hospitalization Category Date Time Status CT head wo con* [id number] Stat Cat Scan 03/22/23 17:47 Completed XR chest 1V portable [id number] Stat Exams 03/22/23 17:47 Completed CV. echo complete* [id number] Stat Ultrasound 03/23/23 06:00 Completed Pending at discharge Category Date Time Status 25 Hydroxy Vitamin D Stat Lab 03/24/23 04:59 Ordered CK [Creatine Phosphokinase] Stat Lab 03/24/23 04:59 Ordered Complete Blood Count w/Auto AM LABS Lab 03/24/23 04:00 Ordered Complete Blood Count w/Auto AM LABS Lab 03/25/23 04:00 Ordered Comprehensive Metabolic Panel AM LABS Lab 03/24/23 04:00 Ordered Comprehensive Metabolic Panel AM LABS Lab 03/25/23 04:00 Ordered Magnesium AM LABS Lab 03/24/23 04:00 Ordered Magnesium AM LABS Lab 03/25/23 04:00 Ordered Phosphorus AM LABS Lab 03/24/23 04:00 Ordered Phosphorus AM LABS Lab 03/25/23 04:00 Ordered Radiology Impressions Chest X-Ray 03/22/23 17:47 IMPRESSION: No acute findings. Head CT 03/22/23 17:47 IMPRESSION: No acute intracranial abnormality. Laboratory Results WBC 5.53 10^3/uL (3.29-11.43) 03/23/23 04:49 RBC 4.40 10^6/uL (3.85-5.65) 03/23/23 04:49 Hgb 14.80 g/dL (11.27-16.99) 03/23/23 04:49 Hct 43.3 % (37-53) 03/23/23 04:49 MCV 98.4 fl (82-101) 03/23/23 04:49 MCH 33.6 pg (27-33) H 03/23/23 04:49 MCHC 34.2 g/dL (30-55) 03/23/23 04:49 RDW 12.5 % (12.1-15.1) 03/23/23 04:49 Plt Count 163 10^3/cmm (157-399) 03/23/23 04:49 MPV 10.6 fL (7.4-10.4) H 03/23/23 04:49 Neut % (Auto) 57.7 % 03/23/23 04:49 Lymph % (Auto) 28.8 % 03/23/23 04:49 Fountain % (Auto) 9.9 % 03/23/23 04:49 Eos % (Auto) 2.5 % 03/23/23 04:49 Baso % (Auto) 0.7 % 03/23/23 04:49 Neut # (Auto) 3.19 10^3/uL (1.8-7.7) 03/23/23 04:49 Lymph # (Auto) 1.6 10^3/uL (0.8-4.8) 03/23/23 04:49 Fountain # (Auto) 0.6 10^3/uL (0.2-0.9) 03/23/23 04:49 Eos # (Auto) 0.1 10^3/uL (0.0-0.8) 03/23/23 04:49 Baso # (Auto) 0.0 10^3/uL (0.0-0.1) 03/23/23 04:49 Nucleated RBC % (auto) 0 % 03/23/23 04:49 Nucleated RBCs # 0.0 /100WBC 03/23/23 04:49 PT 14.50 SECONDS (12.1-14.9) 03/22/23 18:21 INR 1.10 (0.8-1.2) 03/22/23 18:21 APTT 26.9 SECONDS (23.9-36.7) 03/22/23 15:54 Sodium 139 mmol/L (136-145) 03/23/23 04:49 Potassium 3.8 mmol/L (3.5-5.1) 03/23/23 04:49 Chloride 98 mmol/L (98-107) 03/23/23 04:49 Carbon Dioxide 27 mmol/L (22-29) 03/23/23 04:49 Anion Gap 17.8 (5-19) 03/23/23 04:49 BUN 23 mg/dL (6-20) H 03/23/23 04:49 Creatinine 0.9 mg/dL (0.7-1.2) 03/23/23 04:49 GFR Calculation 89.7 mL/min (90-130) L 03/23/23 04:49 Glucose 107 mg/dL (65-115) 03/23/23 04:49 POC Glucose 103 mg/dL (70-110) 03/23/23 21:11 Calculated Osmolality 292 mOsm/kg (285-295) 03/23/23 04:49 Calcium 9.3 mg/dL (8.5-10.5) 03/23/23 04:49 Phosphorus 3.5 mg/dL (2.5-4.5) 03/23/23 04:49 Magnesium 1.5 mg/dL (1.7-2.3) L 03/23/23 04:49 Total Bilirubin 0.8 mg/dL (0.15-1.2) 03/23/23 04:49 AST 75 U/L (0-40) H 03/23/23 04:49 ALT 123 U/L (0-41) H 03/23/23 04:49 Alkaline Phosphatase 93 U/L (40-130) 03/23/23 04:49 Troponin T Baseline 13 ng/L (0-15) 03/22/23 15:54 Troponin T 120 Minute 10.82 ng/L (0-15) 03/22/23 19:50 Delta Troponin T -2.18 ABS# (0-10) L 03/22/23 19:50 Troponin T Hi Sens 6Hr 9.22 ng/L (0-15) 03/22/23 22:07 Troponin T Hi Sens 6Hr Delta -3.78 ng/L (0-12) L 03/22/23 22:07 NT-Pro-B Natriuret Pep 539 pg/mL (0-125) H 03/22/23 15:54 NT-Pro-B Natriuret Pep 553 pg/mL (0-125) H 03/22/23 15:54 Total Protein 7.6 g/dL (6.6-8.7) 03/23/23 04:49 Albumin 4.2 g/dL (3.5-5.2) 03/23/23 04:49 Globulin 3.4 g/dL (1.3-4.6) 03/23/23 04:49 Triglycerides 386 mg/dL (0-150) H 03/23/23 04:49 Cholesterol 329 mg/dL (0-200) H 03/23/23 04:49 LDL Cholesterol, Calc 201 mg/dL (50-129) H 03/23/23 04:49 HDL Cholesterol 51 mg/dL (60-100) L 03/23/23 04:49 LDL/HDL Ratio 3.94 RATIO (0.00-3.22) H 03/23/23 04:49 Cholesterol/HDL Ratio 6.45 mg/dL (1.0-5.00) H 03/23/23 04:49 TSH 0.64 uIU/mL (0.27-4.20) 03/22/23 15:54 Urine Color Yellow (Yellow) 03/22/23 20:00 Urine Appearance Clear (CLEAR) 03/22/23 20:00 Urine pH 5 (5-7) 03/22/23 20:00 Ur Specific [place]ctor 1.015 (1.005-1.030) 03/22/23 20:00 Urine Protein Neg (Negative) 03/22/23 20:00 Urine Glucose (UA) Norm (Normal) 03/22/23 20:00 Urine Ketones Negative (Negative) 03/22/23 20:00 Urine Blood Neg (Negative) 03/22/23 20:00 Urine Nitrate Negative (Negative) 03/22/23 20:00 Urine Bilirubin Neg (Negative) 03/22/23 20:00 Urine Urobilinogen Norm mg/dL (Negative) 03/22/23 20:00 Ur Leukocyte Esterase Negative (Negative) 03/22/23 20:00 Urine Opiates Screen Negative ng/mL (Negative) 03/22/23 20:00 Ur Barbiturates Screen Negative ng/mL (Negative) 03/22/23 20:00 Ur Phencyclidine Scrn Negative ng/mL (Negative) 03/22/23 20:00 Ur Amphetamines Screen Negative ng/mL (Negative) 03/22/23 20:00 U Benzodiazepines Scrn Positive ng/mL (Negative) H 03/22/23 20:00 Urine Cocaine Screen Negative ng/mL (Negative) 03/22/23 20:00 U Marijuana (THC) Screen Negative ng/mL (Negative) 03/22/23 20:00 Ethyl Alcohol < 10 mg/dL (0-10) 03/22/23 15:54 Vitals Last Vital Signs Temp 97.6 F 03/24/23 08:00 Pulse 63 03/24/23 08:00 Resp 16 03/24/23 08:00 BP 140/83 03/24/23 08:00 Pulse Ox 96 03/24/23 08:00 O2 Del Method Room Air 03/24/23 08:00 Discharge Plan Discharge Patient Disposition: Home Condition: Stable Prescriptions: New atorvastatin 40 mg Tablet 40 mg PO BEDTIME Qty: 30 0RF diltiazem HCl 120 mg Capsule,Extended Release 24hr 240 mg PO DAILY Qty: 60 0RF Thera 400 mcg Tablet 1 tab PO DAILY Qty: 30 0RF chlordiazepoxide HCl 25 mg capsule 25 mg PO QID Qty: 30 0RF chlordiazepoxide HCl 25 mg capsule 25 mg PO Q6H Qty: 30 0RF chlordiazepoxide HCl 25 mg capsule 25 mg PO Q6H Qty: 30 0RF Continued escitalopram oxalate [Lexapro] 10 mg tablet 20 mg PO DAILY olmesartan 40 mg tablet 40 mg PO DAILY aspirin 325 mg capsule 325 mg PO DAILY Qty: 30 0RF metformin 500 mg tablet extended release 24 hr 500 mg PO DAILY Rx Instructions: take with evening meal (DME) Accu-Chek Softclix Lancets [facility]) [facility]k [facility] [place] [place] Accu-Chek Guide test strips Strip MISCELLANEOUS tramadol 50 mg tablet 50 mg PO Q4H PRN (Reason: Pain) cyclobenzaprine 10 mg tablet 10 mg PO BID PRN (Reason: Spasms) triamterene-hydrochlorothiazid 37.5-25 mg tablet 1 tab PO DAILY alprazolam 1 mg tablet 1 mg PO TID PRN (Reason: Anxiety) metoprolol tartrate 25 mg tablet 25 mg PO BID 30 Days Qty: 60 0RF gabapentin 300 mg capsule 300 mg PO QID PRN (Reason: Pain) Discontinued diltiazem HCl 120 mg capsule,extended release 24hr 120 mg PO DAILY Discharge Orders: Discharge Order (Routine); Ordered 03/24/23 Ordered By: Mae Lovell Referrals: Rakesh Rapp M.D [Physician] - 04/08/23 9:30 am () Dawn Barrios APN [Primary Care Provider] - 03/30/23 2:40 pm Discharge Diet: Diabetic and Low Salt Discharge Activity: Resume usual activity Patient Instructions: Chlordiazepoxide (By mouth), Diltiazem (By mouth) (Cardizem, Cardizem CD, Cardizem LA, Cardizem SR), Multivitamins, Adult Formula (By mouth) (Daily Multiple Vitamins,..., Atorvastatin (By mouth) (Lipitor, Atorvaliq), A-fib (Atrial Fibrillation) (DC), Abuse of Alcohol (DC), Chest Pain Stoplight, Opioid Safety Activity Restrictions/Additional Instructions: 1) Take 25mg of Chlordiazepoxide (Librium) 4 times a day for three days, then take 2) 25mg of Chlordiazepoxide (Librium) 3 times a day for 3 days, then take 3) 25mg of Chlordiazepoxide (Librium) 2 times a day for three days, then take 4) 25mg of Chlordiazepoxide (Librium) once daily for 3 days. Discharge Attestations Time Spent in Discharge Care*: greater than 30 min Quality Metrics Clinical Quality Measures [ No reported AMI, CVA or VTE this stay] Coding Level of Care Code 57551 Diagnoses Atrial fibrillation with rapid ventricular response I48.91 Alcohol use disorder F10.90 Obstructive sleep apnea G47.33 Current every day vaping Z72.89 Primary hypertension I10 Hypertension type: primary hypertension Comment Complicated discharge, because it required five efforts to transmit his medications.
[2023-03-24 10:41] VITALS: BP 140/83; PULSE 63; RESP 16; TEMP 36.4; O2SAT 96
--- NOTE | 2023-03-24 11:45 | PC.NURSE ---
Discharge Note Patient discharged to [home] via [w/c to POV] accompanied by [RN]. Discharge instructions reviewed with patient and/or healthcare sales representative. Mobile pharmacy medications and/or prescriptions provided. Belongings/home medications returned.
== END 2023-03-24 11:15 | disposition home or self-care (01) | DRG 309 ==
LOC: ER 17:13 → CSU 18:41
PROVIDERS: Admitting Provider Family Medicine; Emergency Provider Internal Medicine; PCP Nurse Practitioner Family; Visit Provider Internal Medicine
DX: I48.0 Paroxysmal atrial fibrillation (principal); Z68.42 Body mass index [BMI] 45.0-49.9, adult; I10 Essential (primary) hypertension; G62.9 Polyneuropathy, unspecified; F10.20 Alcohol dependence, uncomplicated; G47.33 Obstructive sleep apnea (adult) (pediatric); F17.290 Nicotine dependence, other tobacco product, uncomplicated; F32.9 Major depressive disorder, single episode, unspecified; F41.9 Anxiety disorder, unspecified; E87.70 Fluid overload, unspecified; R74.01 Elevation of levels of liver transaminase levels; M62.838 Other muscle spasm; E66.01 Morbid (severe) obesity due to excess calories
CPT/HCPCS: 36415; 36416; 70450; 71045; 80053; 80061; 80306; 80307; 81003; 82962; 83735; 83880; 84100; 84443; 84484; 85025; 85610; 85730; 93005; 93306; 94664; 96365; 96366; 96372; 96375; 96376; 99285; C9113; J1650; J1940; J3411; J3475; J3490; J7030

== ENCOUNTER 2023-04-03 15:10 | Emergency (ER) | payer OTHER, SELFPAY ==
--- NOTE | 2023-04-03 15:12 | XRR_ITS ---
PROCEDURE INFORMATION: Exam: XR Chest Exam date and time: 04/03/2023 3:28 PM Age: 47 years old Clinical indication: Cough and dyspnea; Additional info: Dyspnea/cough TECHNIQUE: Imaging protocol: Radiologic exam of the chest. Views: 1 view. COMPARISON: 1. CR XR chest 1V portable [id number] 10/09/2022 2:51 PM 2. CR XR chest 1V portable [id number] 07/10/2022 6:09 PM 3. CR (CHEST, ) 03/22/2023 6:37 PM FINDINGS: Lungs: Left basilar subsegmental atelectasis versus scarring. No consolidation. Pleural spaces: Indistinct left costophrenic sulcus. No large pleural effusion or pneumothorax. Heart/Mediastinum: Unremarkable. No cardiomegaly. Bones/joints: Degenerative changes along the spine and right shoulder. XR/XR chest 1V portable [id number] IMPRESSION: Possible small left pleural effusion versus atelectasis or scarring.
[2023-04-03] MEDS: sodium chloride 0.9% 1,000 ML 999 ML IV (15:15)
[2023-04-03 15:17] VITALS: BP 168/82; PULSE 134; RESP 16; TEMP 36.7; O2SAT 94; BMI 46.1
--- NOTE | 2023-04-03 15:25 | ECG_ITS ---
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 Measurements Intervals [place] Rate: 132 P: 247 VA: 195 QRS: 10 QRSD: 95 T: 0 QT: 148 QTc: 219 Interpretive Statements Atrial flutter with a 2-1 block INCOMPLETE RIGHT BUNDLE BRANCH BLOCK [90+ ms QRS DURATION, TERMINAL R IN V1/V2, 40+ ms S IN I/aVL/V4/V5/V6] NONSPECIFIC ST & T-WAVE ABNORMALITY ABNORMAL RHYTHM ECG Compared to ECG 03/22/2023 21:42:15 Incomplete right bundle-branch block now present T-wave abnormality now present Sinus rhythm no longer present Electronically Signed On 04-03-2023 19:28:51 [employer] by Beck cMdaniel M.D. [id number]
[2023-04-03 16:27] LABS: Basophils % 0.9 %; Eosinophils # 0.1 10^3/uL (0.0-0.8); Eosinophils % 2.5 %; Lymphocytes % 29.3 %; Mean Corpuscular Hemoglobin 32.9 pg (27-33); Mean Corpuscular Volume 96.9 fl (82-101); Mean Platelet Volume 10.3 fL (7.4-10.4); Monocytes # 0.3 10^3/uL (0.2-0.9); Monocytes % 10.5 %; Neutrophils # 1.81 10^3/uL (1.8-7.7); Neutrophils % 55.9 %; Nucleated Red Blood Cells % 0 %; Platelet Count 172 10^3/cmm (157-399); Red Blood Count 4.13 10^6/uL (3.85-5.65); Red Cell Distribution Width 11.9 % (12.1-15.1); White Blood Count 3.24 10^3/uL (3.29-11.43)
[2023-04-03 16:37] LABS: Troponin(5th) Baseline 15 ng/L (0-15)
--- NOTE | 2023-04-03 16:37 | W.ED.ARRPALP ---
HPI - Arrhythmia/Palpitations General: Chief Complaint: Arrhythmia/Palpitations Stated Complaint: dizzy Time Seen by Provider: 04/03/23 16:03 Source: patient Mode of arrival: ambulatory Limitations: no limitations History of Present Illness: This patient with a known history of episodic atrial fibrillation historically associated with alcohol consumption presented to the emergency department because he was in atrial fibrillation. He readily admitted to imbibing in excess amount of alcohol last night and awoke this morning realizing his heart was rapid and irregular consistent with rhythm that he has had in the past. He states symptoms continued without chest pain. He then took his diltiazem metoprolol and made his way to the emergency department. While in the waiting room his heart rate seem to be back to normal subjectively. He denied any other subjective complaints at this time. MD complaint: rapid heart beat, palpitations, irregular heart beat and atrial fibrillation Context: awoke with symptoms Associated symptoms: Reports no associated symptoms; Deny anxiety, nausea, pre-syncope, syncope or vomiting Treatments prior to arrival: beta-catherine and calcium channel catherine Review of Systems Const: Denies: fever(s) or chills Eyes: Denies: change in vision ENMT: Denies: odynophagia, nasal discharge or nasal congestion Card: Reports: palpitations; Denies: chest pain, syncope or pre-syncope Resp: Denies: dyspnea, productive cough or non-productive cough GI: Denies: abdominal pain, nausea, vomiting or diarrhea : Denies: flank pain, difficulty urinating or dysuria Musc: Denies: back pain, extremity pain or extremity swelling Skin/Breast: Denies: rash Neuro: Denies: headache(s), numbness in extremities or weakness in extremities Psych: Denies: anxiety PFSH ED PFSH: Medical History Afib Periodic heart flutter Hypertension Neuropathy No pertinent family history Surgical History History of hand surgery left hand No pertinent past surgical history Family History Grandfather Heart disease Grandmother Dementia Other Hypertension Denies family history of Diabetes CAD (coronary artery disease) Clotting disorder Hyperlipidemia Psychiatric illness Chronic kidney disease (CKD) Anesthesia complication Bleeding disorder Lung disease Cancer Stroke Social History Smoking and tobacco/nicotine status: current every day tobacco/nicotine user e-cigarettes E-Cigarette Details: e-cigarette E-cig/vape details: Hx 15PY tobacco use, quit 8yrs ago Alcohol intake: current Alcohol type: hard liquor Substance/Drug Use: former Lives independently: Yes Household members: family Marital status: Number of children: 2 Current occupational status: employed 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 Const: COMMON NORMALS: no acute distress and patient oriented x3 GENERAL APPEARANCE: cooperative and comfortable NUTRITIONAL APPEARANCE: overweight HENMT: COMMON NORMALS: normocephalic, Normal nasal mucous membranes and turbinates present, moist oral mucous membranes and oropharynx normal HEAD & SCALP: normocephalic NOSE: Normal nasal mucous membranes and turbinates present Eye: COMMON NORMALS: Equal, round and reactive pupils present, EOMs intact bilaterally and conjunctivae normal CONJUNCTIVA: Yes conjunctivae normal PUPIL: Yes Equal, round and reactive pupils present Neck/C-Spine: COMMON NORMALS: full ROM, no lymphadenopathy, no JVD and Thyroid normal THYROID: Thyroid normal Resp: COMMON NORMALS: normal respiratory effort, No use of accessory muscles and clear to auscultation bilaterally AUSCULTATION: clear to auscultation bilaterally Cardio: COMMON NORMALS: no JVD GI: COMMON NORMALS: Normal to inspection, nondistended, normoactive bowel sounds present and Soft to palpation PALPATION: Yes Soft to palpation : COMMON NORMALS: Yes no CVA tenderness BLADDER/KIDNEY EXAM: Yes no CVA tenderness Back/Pelvis: COMMON NORMALS: no CVA tenderness, thoracic and lumbar spine normal to inspection, no thoracic nor lumbar tenderness, thoraco-lumbar ROM normal and straight leg raise negative bilaterally Extremity: COMMON NORMALS: normal to inspection, full ROM, capillary refill normal, no calf tenderness and no pedal edema Neuro: COMMON NORMALS: patient oriented x3, moves all extremities, no focal motor deficits and no sensory deficits noted CRANIAL NERVES: Yes CN normal except as noted Psych: COMMON NORMALS: mental status grossly normal Skin: COMMON NORMALS: no rashes or lesions noted, no wounds and turgor normal GENERAL SKIN EXAM: no rashes or lesions noted and turgor normal Course Reevaluation(s): Reevaluation #1: Patient remains clinically stable in sinus rhythm at this point. Laboratories reviewed. No evidence of ischemia, electrolyte abnormalities at this time. Spent some time discussing the relationship of his excess alcohol consumption and recurrent atrial arrhythmias. We also discussed magnesium supplementation. Patient voiced understanding, clinically sober, stable to be discharged Time: 17:03 Vital Signs: Vital signs: Vital Signs Temperature 98.0 F 04/03/23 15:17 Pulse Rate 134 H 04/03/23 15:17 Respiratory Rate 16 04/03/23 15:17 Blood Pressure 168/82 04/03/23 15:17 Pulse Oximetry 94 04/03/23 15:17 Oxygen Delivery Me thod Room Air 04/03/23 15:17 MDM - Arrhythmia/Palpitations Medical Decision Making This patient presented to our emergency department with a history of palpitations and rapid heart rate upon awakening this morning after a prior evening of increased alcohol consumption. He had no concomitant chest pain but was aware of palpitations and his rapid heart rate. He had a prior history of similar occurrence. He subsequently took his usual prescribed medications and made his way to the emergency department. While in the waiting room he subjectively felt like he had converted to a regular heart rate. His initial EKG showed a atrial arrhythmia and subsequently he was in sinus rhythm. Electrolytes chest x-ray and EKG were reviewed revealed no evidence of ischemia. He did have some atelectatic changes in face of no symptoms of respiratory nature, fever etc. unlikely to represent anything other than atelectasis. His magnesium was orally repleted in the emergency department. We had a discussion regarding alcohol consumption related to his atrial arrhythmia. He voiced understanding. Currently stable to be discharged at this time. He is recommended to take usual prescribed medications and supplement oral magnesium daily Medical Records I reviewed the patient's medical records. Prior episodes of similar occurrence with atrial fibs post increased alcohol consumption Lab Data I reviewed the patient's lab results. 04/03/23 16:09 04/03/23 16:09 Radiology Impressions Chest X-Ray 04/03/23 15:12 IMPRESSION: Possible small left pleural effusion versus atelectasis or scarring. Laboratory Results WBC 3.24 10^3/uL (3.29-11.43) L 04/03/23 16:09 RBC 4.13 10^6/uL (3.85-5.65) 04/03/23 16:09 Hgb 13.60 g/dL (11.27-16.99) 04/03/23 16:09 Hct 40.0 % (37-53) 04/03/23 16:09 MCV 96.9 fl (82-101) 04/03/23 16:09 MCH 32.9 pg (27-33) 04/03/23 16:09 MCHC 34.0 g/dL (30-55) 04/03/23 16:09 RDW 11.9 % (12.1-15.1) L 04/03/23 16:09 Plt Count 172 10^3/cmm (157-399) 04/03/23 16:09 MPV 10.3 fL (7.4-10.4) 04/03/23 16:09 Neut % (Auto) 55.9 % 04/03/23 16:09 Lymph % (Auto) 29.3 % 04/03/23 16:09 [place] % (Auto) 10.5 % 04/03/23 16:09 Eos % (Auto) 2.5 % 04/03/23 16:09 Baso % (Auto) 0.9 % 04/03/23 16:09 Neut # (Auto) 1.81 10^3/uL (1.8-7.7) 04/03/23 16:09 Lymph # (Auto) 1.0 10^3/uL (0.8-4.8) 04/03/23 16:09 [place] # (Auto) 0.3 10^3/uL (0.2-0.9) 04/03/23 16:09 Eos # (Auto) 0.1 10^3/uL (0.0-0.8) 04/03/23 16:09 Baso # (Auto) 0.0 10^3/uL (0.0-0.1) 04/03/23 16:09 Nucleated RBC % (auto) 0 % 04/03/23 16:09 Nucleated RBCs # 0.0 /100WBC 04/03/23 16:09 Sodium 140 mmol/L (136-145) 04/03/23 16:09 Potassium 4.2 mmol/L (3.5-5.1) 04/03/23 16:09 Chloride 104 mmol/L (98-107) 04/03/23 16:09 Carbon Dioxide 24 mmol/L (22-29) 04/03/23 16:09 Anion Gap 16.2 (5-19) 04/03/23 16:09 BUN 17 mg/dL (6-20) 04/03/23 16:09 Creatinine 0.8 mg/dL (0.7-1.2) 04/03/23 16:09 GFR Calculation 102.7 mL/min (90-130) 04/03/23 16:09 Glucose 129 mg/dL (65-115) H 04/03/23 16:09 Calculated Osmolality 293 mOsm/kg (285-295) 04/03/23 16:09 Calcium 9.5 mg/dL (8.5-10.5) 04/03/23 16:09 Magnesium 1.5 mg/dL (1.7-2.3) L 04/03/23 16:07 Total Bilirubin 0.3 mg/dL (0.15-1.2) 04/03/23 16:09 AST 92 U/L (0-40) H 04/03/23 16:09 ALT 153 U/L (0-41) H 04/03/23 16:09 Alkaline Phosphatase 78 U/L (40-130) 04/03/23 16:09 Troponin T Baseline 15 ng/L (0-15) 04/03/23 16:09 Total Protein 7.1 g/dL (6.6-8.7) 04/03/23 16:09 Albumin 4.3 g/dL (3.5-5.2) 04/03/23 16:09 Globulin 2.8 g/dL (1.3-4.6) 04/03/23 16:09 XR interpretation done by ED provider, pending radiology final review EKG Data EKG 1: I personally reviewed and interpreted this EKG as follows: Interpretation: Initial electrocardiogram revealed a ventricular rate of 132 bpm. CO interval is normal, QRS duration is normal, corrected QT normal is shortened normal axis. Consistent with a atrial level tachycardia narrow complex without any acute ischemic changes and similar to that which is on file from previous evaluations. Other EKG comments: Chest X-Ray 04/03/23 15:12 IMPRESSION: Possible small left pleural effusion versus atelectasis or scarring. EKG 2: I personally reviewed and interpreted this EKG as follows: Interpretation: Second electrocardiogram this visit reveals a ventricular rate of 75 bpm. Normal CO interval, QRS duration, corrected QT interval. Normal axis. Consistent with normal sinus rhythm. No evidence of preexcitation syndrome,, ischemic changes etc. at this time. Other EKG comments: Chest X-Ray 04/03/23 15:12 IMPRESSION: Possible small left pleural effusion versus atelectasis or scarring. Discharge Plan Discharge Patient Disposition: Home Clinical Impression: Alcohol use disorder, Hypomagnesemia, Atrial arrhythmia Condition: Stable Prescriptions: No Action escitalopram oxalate [Lexapro] 10 mg tablet 20 mg PO DAILY olmesartan 40 mg tablet 40 mg PO DAILY aspirin 325 mg capsule 325 mg PO DAILY Qty: 30 0RF metformin 500 mg tablet extended release 24 hr 500 mg PO DAILY Rx Instructions: take with evening meal (DME) [facility]u-[facility]k Guide Glucose Meter [facility]) Accu-Chek Guide test strips Strip MISCELLANEOUS atorvastatin 40 mg Tablet 40 mg PO BEDTIME Qty: 30 0RF diltiazem HCl 120 mg Capsule,Extended Release 24hr 240 mg PO DAILY Qty: 60 0RF Thera 400 mcg Tablet 1 tab PO DAILY Qty: 30 0RF chlordiazepoxide HCl 25 mg capsule 25 mg PO QID Qty: 30 0RF chlordiazepoxide HCl 25 mg capsule 25 mg PO Q6H Qty: 30 0RF chlordiazepoxide HCl 25 mg capsule 25 mg PO Q6H Qty: 30 0RF tramadol 50 mg tablet 50 mg PO Q4H PRN (Reason: Pain) cyclobenzaprine 10 mg tablet 10 mg PO BID PRN (Reason: Spasms) triamterene-hydrochlorothiazid 37.5-25 mg tablet 1 tab PO DAILY alprazolam 1 mg tablet 1 mg PO TID PRN (Reason: Anxiety) metoprolol tartrate 25 mg tablet 25 mg PO BID 30 Days Qty: 60 0RF gabapentin 300 mg capsule 300 mg PO QID PRN (Reason: Pain) Discharge Orders: Discharge ED (Routine); Ordered 04/03/23 Ordered By: Yuniel Gonzalez Referrals: Denis,BETSY Seymour [Primary Care Provider] - Discharge Diet: Advance as tolerated and Usual diet Discharge Activity: Resume usual activity Patient Instructions: Opioid Safety, Pain Management Activity Restrictions/Additional Instructions: Do not drink alcohol as it causes your heart rhythm problems. Obtain [id number] magnesium and take 400 mg twice daily. You may reduce this to 400 mg daily if it causes diarrhea. Take all your other usual prescribed medications as prescribed if you develop any new or worsening symptoms you are welcome to return to the emergency department at any time. Coding Level of Care Code ED Diesel Technician Mechanic for Tess Sanchez
[2023-04-03 16:40] LABS: Alanine Aminotransferase 153 U/L (0-41); Albumin Level 4.3 g/dL (3.5-5.2); Alkaline Phosphatase 78 U/L (40-130); Anion Gap 16.2 (5-19); Aspartate Amino Transferase 92 U/L (0-40); Blood Urea Nitrogen 17 mg/dL (6-20); Calcium 9.5 mg/dL (8.5-10.5); Carbon Dioxide 24 mmol/L (22-29); Chloride 104 mmol/L (98-107); Globulin 2.8 g/dL (1.3-4.6); Glomerular Filtration Rate 102.7 mL/min (90-130); Glucose 129 mg/dL (65-115); Osmolality Calculated 293 mOsm/kg (285-295); Potassium 4.2 mmol/L (3.5-5.1); Sodium 140 mmol/L (136-145); Total Bilirubin 0.3 mg/dL (0.15-1.2); Total Protein 7.1 g/dL (6.6-8.7)
--- NOTE | 2023-04-03 16:54 | ECG_ITS ---
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 Measurements Intervals [place] Rate: 75 P: 16 TX: 174 QRS: 28 QRSD: 109 T: 36 QT: 372 QTc: 416 Interpretive Statements SINUS RHYTHM POSSIBLE RIGHT VENTRICULAR CONDUCTION DELAY [RSR (QR) IN V1/V2] Compared to ECG 03/22/2023 21:42:15 No significant changes Electronically Signed On 04-03-2023 20:14:50 COSTUME MISTRESS by Beck Mcdaniel M.D. [id number]
[2023-04-03 17:01] LABS: Magnesium 1.5 mg/dL (1.7-2.3)
[2023-04-03] MEDS: magnesium oxide 400 mg tablet 800 MG PO (17:12)
[2023-04-03 17:29] VITALS: BP 156/98; PULSE 78; O2SAT 95
== END 2023-04-03 17:31 | disposition home or self-care (01) ==
PROVIDERS: Physician Assistant; Emergency Provider Emergency Medicine; PCP Nurse Practitioner Family
DX: I49.8 Other specified cardiac arrhythmias (principal); E83.42 Hypomagnesemia; F10.90 Alcohol use, unspecified, uncomplicated; Z79.82 Long term (current) use of aspirin; F17.290 Nicotine dependence, other tobacco product, uncomplicated; I10 Essential (primary) hypertension
CPT/HCPCS: 71045; 80053; 83735; 84484; 85025; 93005; 96360; 96361; 99285; J7030

== ENCOUNTER 2023-04-16 16:00 | Emergency (ER) | payer OTHER, SELFPAY ==
--- NOTE | 2023-04-16 16:02 | XRR_ITS ---
PROCEDURE INFORMATION: Exam: XR Chest Exam date and time: 04/16/2023 5:01 PM Age: 47 years old Clinical indication: Pain; Angina pectoris; Additional info: Cxp TECHNIQUE: Imaging protocol: Radiologic exam of the chest. Views: 1 view. COMPARISON: CR XR chest 1V portable [id number] 04/03/2023 3:28 PM FINDINGS: Lungs: Unremarkable. No consolidation. Pleural spaces: Unremarkable. No pleural effusion. No pneumothorax. Heart/Mediastinum: Unremarkable. No cardiomegaly. Bones/joints: Unremarkable. XR/XR chest 1V portable [id number] IMPRESSION: No acute findings.
[2023-04-16 16:23] VITALS: BP 147/103; PULSE 131; RESP 16; TEMP 36.7; O2SAT 94; BMI 46.1
--- NOTE | 2023-04-16 16:27 | ECG_ITS ---
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 Measurements Intervals [place] Rate: 131 P: 0 MI: 0 QRS: 26 QRSD: 127 T: 21 QT: 293 QTc: 433 Interpretive Statements ATRIAL FLUTTER WITH RAPID VENTRICULAR RESPONSE POSSIBLE RIGHT VENTRICULAR CONDUCTION DELAY [RSR (QR) IN V1/V2] Compared to ECG 04/03/2023 16:54:29 Sinus rhythm no longer present Electronically Signed On 04-16-2023 18:31:12 DIVISION ORDER TECHNICIAN by Rakesh Rapp M.D. [id number]
--- NOTE | 2023-04-16 16:46 | ED_ITS ---
HPI - Arrhythmia/Palpitations 2 General: Chief Complaint: Arrhythmia/Palpitations Stated Complaint: possible afib Time Seen by Provider: 04/16/23 16:03 History of Present Illness: 47-year-old male presents emergency depa rtment stating that he feels like he is having a rapid heart rate. He has a history of atrial fibrillation and has been seen here in this emergency department on several occasions. 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 He states that when he drinks his heart rate goes excessively fast. He states that he did drink a large amount of alcohol last night and also this morning. At present he denies chest pain dizziness or lightheaded feeling. He denies nausea or vomiting. Review of Systems 2 General: Reports: 10 or more systems reviewed and unremarkable except in HPI and below Card: Reports: palpitations and irregular heart rhythm Psych: Reports: other (Alcohol abuse ) [facility] ED 2 PFSH: Medical History Alcohol use disorder Atrial fibrillation with rapid ventricular response Obstructive sleep apnea Current every day vaping BMI 45.0-49.9, adult Moderate major depression Anxiety Afib Periodic heart flutter Hypertension Neuropathy No pertinent family history Surgical History History of hand surgery left hand No pertinent past surgical history Family History Grandfather Heart disease Grandmother Dementia Other Hypertension Denies family history of Diabetes CAD (coronary artery disease) Clotting disorder Hyperlipidemia Psychiatric illness Chronic kidney disease (CKD) Anesthesia complication Bleeding disorder Lung disease Cancer Stroke Social History Smoking and tobacco/nicotine status: current every day tobacco/nicotine user e- cigarettes E-Cigarette Details: e-cigarette E-cig/vape details: Hx 15PY tobacco use, quit 8yrs ago Alcohol intake: current Alcohol type: hard liquor Substance/Drug Use: former Lives independently: Yes Household members: family Marital status: Number of children: 2 Current occupational status: employed 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 Vital signs as documented. No acute distress at present. Alert and oriented-to person, place, time and situation. Head, eyes, ears, nose, mouth, throat: Normocephalic, atraumatic. Pupils-equal, round, reactive to light. No scleral icterus. Normal-appearing external ears. Normal appearing nasal turbinates, no drainage. No obvious oral lesions, posterior oropharynx without erythema or exudates. Neck: Supple, trachea is midline, no lymphadenopathy, no jugular venous distension, thyromegaly, or carotid bruits. Carotid upstrokes are brisk bilaterally. Lungs: clear to auscultation to all lung gauthier. Symmetrical rise and fall of chest, no obvious signs of increased work of breathing at present. Cardiac: R irregularly irregular consistent with atrial fibrillation, positive S1, S2. No murmurs, rubs or gallops that I can appreciate Abdomen: Soft, non-tender to palpation, normal active bowel sounds to all quadrants. No palpable masses, no organomegaly and abdominal bruits. Extremities: 2+ pulses in the upper extremities that are equal bilaterally, 2+ pulses in the lower extremities that are equal bilaterally. Non-edematous. Moves all extremities well, sensation to all extremities are noted. Skin: Warm, dry, intact. Course 2 Vital Signs: Vital signs: Vital Signs Temperature 98.1 F 04/16/23 16:23 Pulse Rate 79 04/16/23 19:39 Respiratory Rate 19 H 04/16/23 19:39 Blood Pressure 159/99 04/16/23 19:39 Pulse Oximetry 93 04/16/23 19:39 Oxygen Delivery Me thod Room Air 04/16/23 18:45 MDM - Arrhythmia/Palpitations Medical Decision Making Physical exam completed and documented, I will obtain serial cardiac enzymes, serial twelve-lead EKGs, chest x-ray, CBC, CMP, urinalysis, B-type natriuretic peptide, PT/PTT/INR, and a chest x-ray. I will also obtain an alcohol level as well as provide the patient IV fluid rehydration and IV Cardizem as well as additional dose of by mouth Cardizem and reevaluate. Differential diagnosis includes alcohol intoxication, dehydration, electrolyte abnormality, medication noncompliance. Medical Records I reviewed the patient's medical records. Lab Data I reviewed the patient's lab results. 04/16/23 17:07 04/16/23 17:07 Radiology Impressions Chest X-Ray 04/16/23 16:02 IMPRESSION: No acute findings. Laboratory Results WBC 5.16 10^3/uL (3.29-11.43) 04/16/23 17:07 RBC 4.51 10^6/uL (3.85-5.65) 04/16/23 17:07 Hgb 14.40 g/dL (11.27-16.99) 04/16/23 17:07 Hct 43.0 % (37-53) 04/16/23 17:07 MCV 95.3 fl (82-101) 04/16/23 17:07 MCH 31.9 pg (27-33) 04/16/23 17:07 MCHC 33.5 g/dL (30-55) 04/16/23 17:07 RDW 11.8 % (12.1-15.1) L 04/16/23 17:07 Plt Count 180 10^3/cmm (157-399) 04/16/23 17:07 MPV 10.7 fL (7.4-10.4) H 04/16/23 17:07 Neut % (Auto) 62.5 % 04/16/23 17:07 Lymph % (Auto) 25.6 % 04/16/23 17:07 [place] % (Auto) 7.8 % 04/16/23 17:07 Eos % (Auto) 3.3 % 04/16/23 17:07 Baso % (Auto) 0.6 % 04/16/23 17:07 Neut # (Auto) 3.23 10^3/uL (1.8-7.7) 04/16/23 17:07 Lymph # (Auto) 1.3 10^3/uL (0.8-4.8) 04/16/23 17:07 [place] # (Auto) 0.4 10^3/uL (0.2-0.9) 04/16/23 17:07 Eos # (Auto) 0.2 10^3/uL (0.0-0.8) 04/16/23 17:07 Baso # (Auto) 0.0 10^3/uL (0.0-0.1) 04/16/23 17:07 Nucleated RBC % (auto) 0 % 04/16/23 17:07 Nucleated RBCs # 0.0 /100WBC 04/16/23 17:07 PT 15.10 SECONDS (12.1-14.9) H 04/16/23 17:07 INR 1.15 (0.8-1.2) 04/16/23 17:07 APTT 29.7 SECONDS (23.9-36.7) 04/16/23 17:07 Sodium 137 mmol/L (136-145) 04/16/23 17:07 Potassium 4.9 mmol/L (3.5-5.1) 04/16/23 17:07 Chloride 101 mmol/L (98-107) 04/16/23 17:07 Carbon Dioxide 24 mmol/L (22-29) 04/16/23 17:07 Anion Gap 16.9 (5-19) 04/16/23 17:07 BUN 29 mg/dL (6-20) H 04/16/23 17:07 Creatinine 0.9 mg/dL (0.7-1.2) 04/16/23 17:07 GFR Calculation 89.7 mL/min (90-130) L 04/16/23 17:07 Glucose 121 mg/dL (65-115) H 04/16/23 17:07 Calculated Osmolality 291 mOsm/kg (285-295) 04/16/23 17:07 Calcium 9.5 mg/dL (8.5-10.5) 04/16/23 17:07 Total Bilirubin 0.5 mg/dL (0.15-1.2) 04/16/23 17:07 AST 66 U/L (0-40) H 04/16/23 17:07 ALT 123 U/L (0-41) H 04/16/23 17:07 Alkaline Phosphatase 92 U/L (40-130) 04/16/23 17:07 Troponin T Baseline 9 ng/L (0-15) 04/16/23 17:07 NT-Pro-B Natriuret Pep 123 pg/mL (0-125) 04/16/23 17:07 Total Protein 7.3 g/dL (6.6-8.7) 04/16/23 17:07 Albumin 4.2 g/dL (3.5-5.2) 04/16/23 17:07 Globulin 3.1 g/dL (1.3-4.6) 04/16/23 17:07 Ethyl Alcohol < 10 mg/dL (0-10) 04/16/23 17:07 All radiology interpretation(s) finalized by discharge EKG Data EKG 1: Interpretation: Twelve-lead EKG obtained at 1627 and reviewed at 1630 demonstrates atrial flutter with a ventricular rate of 131 bpm, QRS duration 127 QT 293 QTc [address] elevation or depression at present to demonstrate acute ischemia or infarction. Other EKG comments: Chest X-Ray 04/16/23 16:02 IMPRESSION: No acute findings. Discharge Plan Discharge Patient Disposition: Home Clinical Impression: Atrial fibrillation and flutter, Alcohol use disorder, severe, dependence Condition: Stable Prescriptions: No Action escitalopram oxalate [Lexapro] 10 mg tablet 20 mg PO DAILY olmesartan 40 mg tablet 40 mg PO DAILY aspirin 325 mg capsule 325 mg PO DAILY Qty: 30 0RF metformin 500 mg tablet extended release 24 hr 500 mg PO DAILY Rx Instructions: take with evening meal (DME) Accu-Chek Softclix Lancets [facility] MISCELLANEOUS (DME) Accu-Chek Guide Glucose Meter [facility] MISCELLANEOUS (DME) Accu-Chek Guide test strips Strip MISCELLANEOUS atorvastatin 40 mg Tablet 40 mg PO BEDTIME Qty: 30 0RF diltiazem HCl 120 mg Capsule,Extended Release 24hr 240 mg PO DAILY Qty: 60 0RF Thera 400 mcg Tablet 1 tab PO DAILY Qty: 30 0RF chlordiazepoxide HCl 25 mg capsule 25 mg PO QID Qty: 30 0RF chlordiazepoxide HCl 25 mg capsule 25 mg PO Q6H Qty: 30 0RF chlordiazepoxide HCl 25 mg capsule 25 mg PO Q6H Qty: 30 0RF tramadol 50 mg tablet 50 mg PO Q4H PRN (Reason: Pain) cyclobenzaprine 10 mg tablet 10 mg PO BID PRN (Reason: Spasms) triamterene-hydrochlorothiazid 37.5-25 mg tablet 1 tab PO DAILY alprazolam 1 mg tablet 1 mg PO TID PRN (Reason: Anxiety) metoprolol tartrate 25 mg tablet 25 mg PO BID 30 Days Qty: 60 0RF gabapentin 300 mg capsule 300 mg PO QID PRN (Reason: Pain) Discharge Orders: Discharge ED (Routine); Ordered 04/16/23 Ordered By: Jorge Munguia Referrals: Dawn Barrios APN [Primary Care Provider] - Discharge Diet: Advance as tolerated Discharge Activity: Resume usual activity Patient Instructions: Opioid Safety, Pain Management Activity Restrictions/Additional Instructions: Activity Restrictions/Additional Instructions: Thank you for choosing [facility] for your healthcare needs today. Please realize that you were seen in the Emergency Department and that we are providing you with an emergency medical screening exam and this may not be a complete and all inclusive of all the testing and or medical work-up that you may need to determine your ailment or severity of your illness. It is very important that you follow-up as instructed with your Primary care provider or Specialist for additional evaluation and to discuss your medical treatment plan. You may return to the Emergency Department should you have concerns or if your condition changes or worsens in any way. Coding Level of Care Code ED Wildlife Officer for Tess Sanchez
[2023-04-16] MEDS: dilTIAZem 5 mg/mL SDV 5 mL 20 MG IVP (17:12)
[2023-04-16 17:13] VITALS: BP 146/95; PULSE 98; RESP 18; O2SAT 93
[2023-04-16 17:29] LABS: Basophils % 0.6 %; Eosinophils # 0.2 10^3/uL (0.0-0.8); Eosinophils % 3.3 %; Lymphocytes # 1.3 10^3/uL (0.8-4.8); Lymphocytes % 25.6 %; Mean Corpuscular HGB Conc 33.5 g/dL (30-55); Mean Corpuscular Hemoglobin 31.9 pg (27-33); Mean Corpuscular Volume 95.3 fl (82-101); Mean Platelet Volume 10.7 fL (7.4-10.4); Monocytes # 0.4 10^3/uL (0.2-0.9); Monocytes % 7.8 %; Neutrophils # 3.23 10^3/uL (1.8-7.7); Neutrophils % 62.5 %; Nucleated Red Blood Cells % 0 %; Platelet Count 180 10^3/cmm (157-399); Red Blood Count 4.51 10^6/uL (3.85-5.65); Red Cell Distribution Width 11.8 % (12.1-15.1); White Blood Count 5.16 10^3/uL (3.29-11.43)
[2023-04-16] MEDS: dilTIAZem 60 mg Tablet 90 MG PO (17:48)
[2023-04-16 17:50] LABS: INR 1.15 (0.8-1.2); Partial Thromboplastin Time 29.7 SECONDS (23.9-36.7)
[2023-04-16] MEDS: sodium chloride 0.9% 1,000 ML 999 ML IV (17:51)
[2023-04-16 17:54] LABS: Troponin(5th) Baseline 9 ng/L (0-15)
--- NOTE | 2023-04-16 18:02 | ECG_ITS ---
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 Measurements Intervals [place] Rate: 82 P: 0 SD: 0 QRS: 34 QRSD: 90 T: 40 QT: 355 QTc: 415 Interpretive Statements ATRIAL FIBRILLATION MODERATE ST DEPRESSION [0.05+ mV ST DEPRESSION] Compared to ECG 04/16/2023 16:27:20 ST (T wave) deviation now present Electronically Signed On 04-16-2023 18:34:04 CNA LTC by Rakesh Rapp M.D. [id number]
[2023-04-16 18:06] LABS: Alanine Aminotransferase 123 U/L (0-41); Albumin Level 4.2 g/dL (3.5-5.2); Alkaline Phosphatase 92 U/L (40-130); Aspartate Amino Transferase 66 U/L (0-40); Blood Urea Nitrogen 29 mg/dL (6-20); Calcium 9.5 mg/dL (8.5-10.5); Carbon Dioxide 24 mmol/L (22-29); Chloride 101 mmol/L (98-107); Globulin 3.1 g/dL (1.3-4.6); Glomerular Filtration Rate 89.7 mL/min (90-130); Glucose 121 mg/dL (65-115); NT Pro B Type Natriuretic Pept 123 pg/mL (0-125); Osmolality Calculated 291 mOsm/kg (285-295); Sodium 137 mmol/L (136-145); Total Bilirubin 0.5 mg/dL (0.15-1.2); Total Protein 7.3 g/dL (6.6-8.7)
[2023-04-16 18:08] VITALS: PULSE 110; RESP 16; O2SAT 93
[2023-04-16 18:26] LABS: Alcohol Level < 10 mg/dL (0-10); Anion Gap 16.9 (5-19); Potassium 4.9 mmol/L (3.5-5.1)
[2023-04-16 18:45] VITALS: PULSE 87; RESP 16; O2SAT 92
[2023-04-16 19:39] VITALS: BP 159/99; PULSE 79; RESP 19; O2SAT 93
== END 2023-04-16 19:42 | disposition home or self-care (01) ==
PROVIDERS: Emergency Provider Internal Medicine; PCP Nurse Practitioner Family
DX: I48.91 Unspecified atrial fibrillation (principal); I48.92 Unspecified atrial flutter; F10.20 Alcohol dependence, uncomplicated; Z79.82 Long term (current) use of aspirin; Z79.84 Long term (current) use of oral hypoglycemic drugs; F17.290 Nicotine dependence, other tobacco product, uncomplicated; I10 Essential (primary) hypertension
CPT/HCPCS: 36415; 71045; 80053; 80307; 83880; 84484; 85025; 85610; 85730; 93005; 96374; 99285; J3490; J7030